=== PATIENT | male | born 1945 | race African-American/Black ===

== ENCOUNTER 2021-01-11 11:02 | Inpatient (IN) | payer BC, OTHER ==
[2021-01-11] MEDS ORDERED: MAG HYDROX/AL HYDROX/SIMETH 30 ML UNIT-DOSE CUP PO ONE (11:44)
[2021-01-11] MEDS ORDERED: FAMOTIDINE 10 MG TABLET PO ONE (11:44)
[2021-01-11] MEDS ORDERED: SUCRALFATE 1 GM TABLET (FP) PO ONE (11:44)
[2021-01-11] MEDS ORDERED: SUCRALFATE 1 GM TABLET (FP) ONE (12:07)
[2021-01-11] MEDS ORDERED: FAMOTIDINE 10 MG TABLET ONE (12:07)
[2021-01-11] MEDS ORDERED: MAG HYDROX/AL HYDROX/SIMETH 30 ML UNIT-DOSE CUP ONE (12:08)
[2021-01-11 12:30] LABS: VENOUS BASE EXCESS 2.2 mmol/L (-2-2); VENOUS PCO2 50.9 mmHg (38-52); VENOUS PH 7.367 (7.310-7.410)
[2021-01-11 12:31] LABS: BASO % 0.1 % (0-2.0); HEMATOCRIT 43.4 % (35.4-49); HEMOGLOBIN 14.5 GM/dL (11.7-16.9); LYMPH % 4.4 % (8-40); MCH 29.3 pg (25.7-33.7); MCHC 33.4 g/dl (32.0-35.9); MEAN CELL VOLUME 87.7 fl (80-96); MEAN PLT VOLUME 10.6 fl (7.5-11.1); MONO % 12.6 % (3.8-10.2); NEUT % 82.9 % (42.8-82.8); PLATELET COUNT 147 10^3/uL (134-434); RBC 4.95 M/mm3 (4.00-5.60); RDW 14.8 % (11.9-15.9); WHITE BLOOD COUNT 11.7 K/mm3 (4.0-10.0)
[2021-01-11 12:57] LABS: CALCIUM 8.4 mg/dL (8.5-10.1)
[2021-01-11 12:58] LABS: ALBUMIN 2.7 g/dl (3.4-5.0); BLOOD UREA NITROGEN 16.7 mg/dL (7-18); MAGNESIUM 1.7 mg/dL (1.8-2.4)
[2021-01-11 13:01] LABS: BILIRUBIN,TOTAL 1.2 mg/dL (0.2-1); CREATININE 1.3 mg/dL (0.55-1.3)
[2021-01-11 13:03] LABS: TOT PROT 6.7 g/dl (6.4-8.2)
[2021-01-11 13:06] LABS: LACTIC ACID 2.5 mmol/L (0.4-2.0)
[2021-01-11] MEDS ORDERED: LACTATED RINGERS SOLUTION 1000 ML INFUS.BAG IV ONE ×2 (13:10→15:45)
[2021-01-11] MEDS ORDERED: ASPIRIN 81 MG CHEWABLE TABLETS PO ONE (13:11)
[2021-01-11] MEDS ORDERED: ASPIRIN COATED 81 MG TABLET.EC ONE (13:21)
[2021-01-11] MEDS ORDERED: ACETAMINOPHEN 325 MG TABLET (FP) PO PRN (15:59)
[2021-01-11 17:00] LABS: LACTIC ACID 2.6 mmol/L (0.4-2.0)
[2021-01-11 17:46] VITALS: BMI 26.2
[2021-01-11] MEDS: ATORVASTATIN CA 40 MG TABLET (FP) PO SCH (22:24)
[2021-01-12] MEDS ORDERED: METOPROLOL TARTRATE 5 MG/5 ML VIAL IVPUSH ONE (02:00)
[2021-01-12] MEDS ORDERED: MAGNESIUM SULF 50% (8.12 MEQ/2 ML-1 GM VIAL) IVPB ONE ×2 (02:00→09:54)
[2021-01-12] MEDS ORDERED: MEROPENEM 1 GM in DEXTROSE 5%-WATER 100 ML IVPB ONE (02:18)
[2021-01-12] MEDS: SODIUM CHLORIDE 1,000 ML IV SCH ×2 (02:48→18:15)
[2021-01-12] MEDS ORDERED: METOPROLOL TARTRATE 25 MG TABLET (FP) PO ONE (03:11)
[2021-01-12] MEDS ORDERED: LORazepam 0.5 MG TABLET PO ONE (03:12)
[2021-01-12] MEDS ORDERED: MEROPENEM 1 GM VIAL (RESTRICTED TO ID) IVPB ONE (03:52)
[2021-01-12] MEDS ORDERED: DEXTROSE 5%-WATER 100 ML IVPB ONE ×2 (03:52→20:59)
[2021-01-12 07:25] LABS: BASO % 0.1 % (0-2.0); HEMATOCRIT 38.1 % (35.4-49); HEMOGLOBIN 12.7 GM/dL (11.7-16.9); LYMPH % 2.1 % (8-40); MCH 29.1 pg (25.7-33.7); MCHC 33.5 g/dl (32.0-35.9); MEAN CELL VOLUME 87.1 fl (80-96); MEAN PLT VOLUME 10.1 fl (7.5-11.1); MONO % 6.6 % (3.8-10.2); NEUT % 91.2 % (42.8-82.8); PLATELET COUNT 154 10^3/uL (134-434); RBC 4.37 M/mm3 (4.00-5.60); RDW 14.7 % (11.9-15.9); WHITE BLOOD COUNT 15.6 K/mm3 (4.0-10.0)
[2021-01-12 07:48] LABS: CALCIUM 8.1 mg/dL (8.5-10.1)
[2021-01-12 07:50] LABS: ALBUMIN 2.4 g/dl (3.4-5.0)
[2021-01-12 07:53] LABS: CREATININE 1.4 mg/dL (0.55-1.3)
[2021-01-12 07:54] LABS: TOT PROT 6.1 g/dl (6.4-8.2)
[2021-01-12 08:50] LABS: LACTIC ACID 4.7 mmol/L (0.4-2.0)
[2021-01-12] MEDS: ASPIRIN COATED 81 MG TABLET.EC PO SCH (09:26)
[2021-01-12 09:48] LABS: ANISOCYTOSIS 0; HELMET CELLS 0; HOWELL-JOLLY BODIES 0; MACROCYTOSIS 0; OVALOCYTE 0; PLATELET ESTIMATE NORMAL; ROULEAU 0; SICKELED CELLS 0; TARGET CELLS 0; TEAR DROP CELLS 0; TOXIC GRANULATION 0
[2021-01-12] MEDS ORDERED: ENOXAPARIN NA (PORCINE) 40 MG/0.4 ML DISP.SYRIN SQ SCH (10:00)
[2021-01-12 11:13] LABS: LACTIC ACID 5.5 mmol/L (0.4-2.0)
[2021-01-12] MEDS: LORazepam 0.5 MG TABLET PO PRN ×2 (14:06→21:40)
[2021-01-12] MEDS: METOPROLOL TARTRATE 25 MG TABLET (FP) PO SCH ×2 (14:56→21:40)
[2021-01-12] MEDS: INSULIN SLIDING SCALE (NOVOLOG) 1 VIAL SQ SCH ×2 (16:38→21:41)
[2021-01-12 18:42] LABS: BASO % 0.2 % (0-2.0); HEMATOCRIT 37.5 % (35.4-49); HEMOGLOBIN 12.5 GM/dL (11.7-16.9); LYMPH % 2.8 % (8-40); MCH 28.9 pg (25.7-33.7); MCHC 33.3 g/dl (32.0-35.9); MEAN CELL VOLUME 86.7 fl (80-96); MEAN PLT VOLUME 10.2 fl (7.5-11.1); MONO % 5.9 % (3.8-10.2); NEUT % 91.1 % (42.8-82.8); PLATELET COUNT 163 10^3/uL (134-434); RBC 4.32 M/mm3 (4.00-5.60); RDW 14.8 % (11.9-15.9); WHITE BLOOD COUNT 15.2 K/mm3 (4.0-10.0)
[2021-01-12 18:47] LABS: INR 1.21 (0.83-1.09); PROTHROMBIN TIME (PATIENT) 14.6 SEC (9.7-13.0)
[2021-01-12 18:50] LABS: ACTIVATED PTT 31.5 SECONDS (25.2-36.5)
[2021-01-12] MEDS: HEPARIN INFUSION - 25,000 UNITS/500 ML INFUS.BAG IVPB SCH (18:52)
[2021-01-12] MEDS ORDERED: DOXYCYCLINE HYCLATE 100 MG VIAL ONE (20:59)
[2021-01-12] MEDS: ATORVASTATIN CA 40 MG TABLET (FP) PO SCH (21:40)
[2021-01-12] MEDS: DOXYCYCLINE INJECTION 100 MG in DEXTROSE 5%-WATER 100 ML IVPB SCH (21:41)
[2021-01-12] MEDS ORDERED: APIXABAN 5 MG TABLET PO SCH (22:00)
[2021-01-12 23:40] LABS: EPI CELLS >36 /uL (0-25.1); HYALINE CASTS 18 /uL (0-3.1); PH,URINE 5.5 (5.0-8.0); URINE APPEARANCE CLOUDY; URINE BACTERIA 19 /uL (0-1359); URINE BILIRUBIN 1+ (NEGATIVE); URINE COLOR DK YELLOW; URINE GLUCOSE (UA) NEGATIVE (NEGATIVE); URINE KETONE TRACE (NEGATIVE); URINE LEUK ESTERASE 1+ (NEGATIVE); URINE NITRITE NEGATIVE (NEGATIVE); URINE PROTEIN 1+ (NEGATIVE); URINE RBC 19 /uL (0-23.9); URINE UROBILINOGEN 0.2 mg/dL (0.2-1.0); URINE WBC 400 /uL (0-25.8)
[2021-01-13] MEDS: HEPARIN NA (PORCINE) 5,000 UNITS/ML 1ML VIAL IVPUSH PRN ×3 (01:32→17:58)
[2021-01-13] MEDS: HEPARIN INFUSION - 25,000 UNITS/500 ML INFUS.BAG IVPB SCH ×3 (01:34→19:30)
[2021-01-13] MEDS: SODIUM CHLORIDE 1,000 ML IV SCH ×2 (02:30→18:45)
[2021-01-13] MEDS ORDERED: DIGOXIN 0.5 MG/2 ML AMPUL IVPUSH ONE ×2 (03:15→03:45)
[2021-01-13 04:21] LABS: BASO % 0.2 % (0-2.0); HEMATOCRIT 37.4 % (35.4-49); HEMOGLOBIN 12.6 GM/dL (11.7-16.9); LYMPH % 2.7 % (8-40); MCH 29.2 pg (25.7-33.7); MCHC 33.8 g/dl (32.0-35.9); MEAN CELL VOLUME 86.4 fl (80-96); MEAN PLT VOLUME 10.5 fl (7.5-11.1); MONO % 5.5 % (3.8-10.2); NEUT % 91.6 % (42.8-82.8); PLATELET COUNT 164 10^3/uL (134-434); RBC 4.33 M/mm3 (4.00-5.60); RDW 14.8 % (11.9-15.9); WHITE BLOOD COUNT 17.2 K/mm3 (4.0-10.0)
[2021-01-13 05:01] LABS: ALBUMIN 2.4 g/dl (3.4-5.0); BLOOD UREA NITROGEN 38.4 mg/dL (7-18); CALCIUM 7.9 mg/dL (8.5-10.1)
[2021-01-13 05:06] LABS: CREATININE 1.4 mg/dL (0.55-1.3)
[2021-01-13 05:07] LABS: BILIRUBIN,TOTAL 0.6 mg/dL (0.2-1); TOT PROT 6.1 g/dl (6.4-8.2)
[2021-01-13] MEDS ORDERED: METOPROLOL TARTRATE 5 MG/5 ML VIAL IVPUSH ONE (05:08)
[2021-01-13 05:30] LABS: LACTIC ACID 2.9 mmol/L (0.4-2.0)
[2021-01-13] MEDS: INSULIN SLIDING SCALE (NOVOLOG) 1 VIAL SQ SCH ×4 (06:09→21:42)
[2021-01-13 06:46] LABS: ANISOCYTOSIS 0; HELMET CELLS 0; HOWELL-JOLLY BODIES 0; MACROCYTOSIS 0; OVALOCYTE 0; PLATELET ESTIMATE NORMAL; ROULEAU 0; SICKELED CELLS 0; TARGET CELLS 0; TEAR DROP CELLS 0; TOXIC GRANULATION 0
[2021-01-13 08:30] LABS: BASO % 0.1 % (0-2.0); HEMATOCRIT 35.6 % (35.4-49); HEMOGLOBIN 11.9 GM/dL (11.7-16.9); LYMPH % 2.2 % (8-40); MCH 29.1 pg (25.7-33.7); MCHC 33.6 g/dl (32.0-35.9); MEAN CELL VOLUME 86.7 fl (80-96); MEAN PLT VOLUME 10.5 fl (7.5-11.1); MONO % 5.6 % (3.8-10.2); NEUT % 92.1 % (42.8-82.8); PLATELET COUNT 172 10^3/uL (134-434); RDW 14.7 % (11.9-15.9); WHITE BLOOD COUNT 16.3 K/mm3 (4.0-10.0)
[2021-01-13] MEDS ORDERED: MEROPENEM 1 GM VIAL (RESTRICTED TO ID) IVPB ONE ×3 (08:34→17:34)
[2021-01-13] MEDS ORDERED: DEXTROSE 5%-WATER 100 ML IVPB ONE ×5 (08:35→20:55)
[2021-01-13] MEDS: MEROPENEM 1 GM in DEXTROSE 5%-WATER 100 ML IVPB SCH ×3 (08:47→17:38)
[2021-01-13 08:49] LABS: CHLORIDE 100 mmol/L (98-107); SODIUM 135 mmol/L (136-145)
[2021-01-13 08:51] LABS: CALCIUM 8.1 mg/dL (8.5-10.1)
[2021-01-13 08:52] LABS: ANION GAP 9 MMOL/L (8-16); BLOOD UREA NITROGEN 42.3 mg/dL (7-18); CO2 26 mmol/L (21-32); GLUCOSE,RANDOM 242 mg/dL (74-106)
[2021-01-13 08:53] LABS: MAGNESIUM 2.2 mg/dL (1.8-2.4)
[2021-01-13 08:56] LABS: CREATININE 1.5 mg/dL (0.55-1.3); PHOSPHOROUS 3.4 mg/dL (2.5-4.9); SGPT/ALT 36 U/L (13-61)
[2021-01-13 08:58] LABS: ALBUMIN 2.2 g/dl (3.4-5.0); ALK PHOS 95 U/L (45-117); BILIRUBIN,TOTAL 0.7 mg/dL (0.2-1); TOT PROT 5.7 g/dl (6.4-8.2)
[2021-01-13 09:02] LABS: SGOT/AST 48 U/L (15-37)
[2021-01-13] MEDS ORDERED: DOXYCYCLINE HYCLATE 100 MG VIAL ONE ×2 (09:21→20:55)
[2021-01-13 09:28] LABS: ANISOCYTOSIS 0; MACROCYTOSIS 0; PLATELET ESTIMATE NORMAL
[2021-01-13] MEDS: ASPIRIN COATED 81 MG TABLET.EC PO SCH (09:40)
[2021-01-13] MEDS: DOXYCYCLINE INJECTION 100 MG in DEXTROSE 5%-WATER 100 ML IVPB SCH ×2 (09:40→21:10)
[2021-01-13] MEDS: METOPROLOL TARTRATE 25 MG TABLET (FP) PO SCH (09:40)
[2021-01-13] MEDS ORDERED: metoPROLOL SUCCINATE 25 MG TAB.SR.24H (FP) PO ONE (11:15)
[2021-01-13 17:17] LABS: EPI CELLS 10 /uL (0-25.1); HYALINE CASTS 4 /uL (0-3.1); PH,URINE 5.5 (5.0-8.0); URINE APPEARANCE CLOUDY; URINE BACTERIA 128 /uL (0-1359); URINE BILIRUBIN NEGATIVE (NEGATIVE); URINE COLOR YELLOW; URINE GLUCOSE (UA) NEGATIVE (NEGATIVE); URINE KETONE 1+ (NEGATIVE); URINE LEUK ESTERASE TRACE (NEGATIVE); URINE NITRITE NEGATIVE (NEGATIVE); URINE PROTEIN TRACE (NEGATIVE); URINE RBC 36 /uL (0-23.9); URINE UROBILINOGEN 0.2 mg/dL (0.2-1.0); URINE WBC 143 /uL (0-25.8)
[2021-01-13] MEDS: LORazepam 0.5 MG TABLET PO PRN (18:03)
[2021-01-13] MEDS: ATORVASTATIN CA 40 MG TABLET (FP) PO SCH (21:10)
[2021-01-14] MEDS: HEPARIN INFUSION - 25,000 UNITS/500 ML INFUS.BAG IVPB SCH ×3 (00:11→18:51)
[2021-01-14] MEDS ORDERED: MEROPENEM 1 GM VIAL (RESTRICTED TO ID) IVPB ONE ×3 (01:05→17:04)
[2021-01-14] MEDS ORDERED: DEXTROSE 5%-WATER 100 ML IVPB ONE ×5 (01:06→22:00)
[2021-01-14] MEDS: MEROPENEM 1 GM in DEXTROSE 5%-WATER 100 ML IVPB SCH ×3 (01:17→17:24)
[2021-01-14] MEDS: LORazepam 0.5 MG TABLET PO PRN (06:08)
[2021-01-14] MEDS: INSULIN SLIDING SCALE (NOVOLOG) 1 VIAL SQ SCH ×4 (06:09→22:08)
[2021-01-14 07:43] LABS: HEMATOCRIT 35.4 % (35.4-49); MCH 29.1 pg (25.7-33.7); MEAN CELL VOLUME 85.7 fl (80-96); MEAN PLT VOLUME 10.2 fl (7.5-11.1); PLATELET COUNT 170 10^3/uL (134-434); RBC 4.13 M/mm3 (4.00-5.60); RDW 14.8 % (11.9-15.9); WHITE BLOOD COUNT 15.3 K/mm3 (4.0-10.0)
[2021-01-14 08:33] LABS: CALCIUM 8.3 mg/dL (8.5-10.1)
[2021-01-14 08:35] LABS: ALBUMIN 2.2 g/dl (3.4-5.0); BLOOD UREA NITROGEN 42.4 mg/dL (7-18); MAGNESIUM 2.5 mg/dL (1.8-2.4)
[2021-01-14 08:37] LABS: CREATININE 1.3 mg/dL (0.55-1.3); PHOSPHOROUS 1.9 mg/dL (2.5-4.9)
[2021-01-14 08:38] LABS: TOT PROT 5.7 g/dl (6.4-8.2)
[2021-01-14 08:39] LABS: BILIRUBIN,TOTAL 0.6 mg/dL (0.2-1)
[2021-01-14] MEDS ORDERED: DOXYCYCLINE HYCLATE 100 MG VIAL ONE ×3 (09:08→22:00)
[2021-01-14] MEDS: DOXYCYCLINE INJECTION 100 MG in DEXTROSE 5%-WATER 100 ML IVPB SCH ×2 (09:31→22:07)
[2021-01-14] MEDS: ASPIRIN COATED 81 MG TABLET.EC PO SCH (09:31)
[2021-01-14] MEDS: guaiFENesin/D-M SUGAR-FREE/ACLHOL-FREE 5 ML UNIT DOSE PO PRN (11:45)
[2021-01-14] MEDS ORDERED: INSULIN (NOVOLOG) ASPART 100 UNITS/ML 10ML VIAL ONE ×2 (11:58→18:31)
[2021-01-14] MEDS ORDERED: PT OWN MED DRAWER 7, Y5N ONE (12:19)
[2021-01-14] MEDS ORDERED: metoPROLOL SUCCINATE 25 MG TAB.SR.24H (FP) PO ONE (12:47)
[2021-01-14] MEDS: NAPH,MB-DB/K PH,MBDB POWDER PACKET PO SCH ×2 (14:38→22:06)
[2021-01-14] MEDS: SODIUM CHLORIDE 1,000 ML IV SCH (19:00)
[2021-01-14 19:47] LABS: CALCIUM 8.2 mg/dL (8.5-10.1); CREATININE 1.1 mg/dL (0.55-1.3)
[2021-01-14] MEDS: ATORVASTATIN CA 40 MG TABLET (FP) PO SCH (22:06)
[2021-01-14] MEDS: MELATONIN 5 MG TABLETS PO PRN (23:25)
[2021-01-15] MEDS ORDERED: MEROPENEM 1 GM VIAL (RESTRICTED TO ID) IVPB ONE ×3 (01:25→17:20)
[2021-01-15] MEDS ORDERED: DEXTROSE 5%-WATER 100 ML IVPB ONE ×4 (01:25→22:12)
[2021-01-15] MEDS: LORazepam 0.5 MG TABLET PO PRN (01:28)
[2021-01-15] MEDS: MEROPENEM 1 GM in DEXTROSE 5%-WATER 100 ML IVPB SCH ×3 (01:43→17:42)
[2021-01-15] MEDS: INSULIN SLIDING SCALE (NOVOLOG) 1 VIAL SQ SCH ×4 (06:01→22:18)
[2021-01-15 07:59] LABS: HEMATOCRIT 35.2 % (35.4-49); MCH 29.2 pg (25.7-33.7); MCHC 34.1 g/dl (32.0-35.9); MEAN CELL VOLUME 85.6 fl (80-96); MEAN PLT VOLUME 10.1 fl (7.5-11.1); PLATELET COUNT 190 10^3/uL (134-434); RDW 14.3 % (11.9-15.9); WHITE BLOOD COUNT 10.9 K/mm3 (4.0-10.0)
[2021-01-15 08:31] LABS: MAGNESIUM 2.3 mg/dL (1.8-2.4)
[2021-01-15 08:34] LABS: PHOSPHOROUS 2.3 mg/dL (2.5-4.9)
[2021-01-15] MEDS ORDERED: DOXYCYCLINE HYCLATE 100 MG VIAL ONE ×2 (09:13→22:11)
[2021-01-15] MEDS: ASPIRIN COATED 81 MG TABLET.EC PO SCH (09:38)
[2021-01-15] MEDS: DOXYCYCLINE INJECTION 100 MG in DEXTROSE 5%-WATER 100 ML IVPB SCH ×2 (09:38→22:18)
[2021-01-15 11:22] LABS: ANION GAP 9 MMOL/L (8-16); BLOOD UREA NITROGEN 31.3 mg/dL (7-18); CALCIUM 8.6 mg/dL (8.5-10.1); CHLORIDE 101 mmol/L (98-107); CO2 26 mmol/L (21-32); GLUCOSE,RANDOM 180 mg/dL (74-106); SODIUM 136 mmol/L (136-145)
[2021-01-15] MEDS ORDERED: metoPROLOL SUCCINATE 25 MG TAB.SR.24H (FP) PO ONE ×2 (11:38→13:45)
[2021-01-15] MEDS ORDERED: NAPH,MB-DB/K PH,MBDB POWDER PACKET PO ONE (11:43)
[2021-01-15] MEDS ORDERED: INSULIN (NOVOLOG) ASPART 100 UNITS/ML 10ML VIAL ONE ×2 (12:15→18:14)
[2021-01-15] MEDS: HEPARIN INFUSION - 25,000 UNITS/500 ML INFUS.BAG IVPB SCH ×2 (15:48→17:43)
[2021-01-15] MEDS ORDERED: LORazepam 2 MG TABLET PO PRN (21:14)
[2021-01-15] MEDS ORDERED: LORazepam 0.5 MG TABLET PO PRN (21:19)
[2021-01-15] MEDS: ATORVASTATIN CA 40 MG TABLET (FP) PO SCH (22:18)
[2021-01-15] MEDS: MELATONIN 5 MG TABLETS PO PRN (22:18)
[2021-01-16] MEDS ORDERED: DEXTROSE 5%-WATER 100 ML IVPB ONE ×5 (01:36→22:36)
[2021-01-16] MEDS ORDERED: MEROPENEM 1 GM VIAL (RESTRICTED TO ID) IVPB ONE ×3 (01:36→17:40)
[2021-01-16] MEDS: MEROPENEM 1 GM in DEXTROSE 5%-WATER 100 ML IVPB SCH ×3 (01:59→17:29)
[2021-01-16] MEDS: INSULIN SLIDING SCALE (NOVOLOG) 1 VIAL SQ SCH ×4 (06:09→22:52)
[2021-01-16 07:46] LABS: CHLORIDE 102 mmol/L (98-107); SODIUM 139 mmol/L (136-145)
[2021-01-16 07:54] LABS: ANION GAP 8 MMOL/L (8-16); BLOOD UREA NITROGEN 22.2 mg/dL (7-18); CO2 29 mmol/L (21-32); GLUCOSE,RANDOM 135 mg/dL (74-106); MAGNESIUM 2.1 mg/dL (1.8-2.4)
[2021-01-16 07:57] LABS: PHOSPHOROUS 2.9 mg/dL (2.5-4.9)
[2021-01-16] MEDS ORDERED: DOXYCYCLINE HYCLATE 100 MG VIAL ONE ×2 (09:19→22:35)
[2021-01-16] MEDS: TAMSULOSIN HCL 0.4 MG CAP PO SCH (10:16)
[2021-01-16] MEDS: DOXYCYCLINE INJECTION 100 MG in DEXTROSE 5%-WATER 100 ML IVPB SCH ×2 (10:17→22:52)
[2021-01-16] MEDS: ASPIRIN COATED 81 MG TABLET.EC PO SCH (10:17)
[2021-01-16] MEDS: LISINOPRIL 5 MG TABLET PO SCH (10:17)
[2021-01-16] MEDS: HEPARIN INFUSION - 25,000 UNITS/500 ML INFUS.BAG IVPB SCH (17:31)
[2021-01-16] MEDS: MELATONIN 5 MG TABLETS PO PRN (22:52)
[2021-01-16] MEDS: ATORVASTATIN CA 40 MG TABLET (FP) PO SCH (22:52)
[2021-01-17] MEDS ORDERED: DEXTROSE 5%-WATER 100 ML IVPB ONE ×3 (01:24→09:48)
[2021-01-17] MEDS ORDERED: MEROPENEM 1 GM VIAL (RESTRICTED TO ID) IVPB ONE ×2 (01:24→09:48)
[2021-01-17] MEDS: MEROPENEM 1 GM in DEXTROSE 5%-WATER 100 ML IVPB SCH ×2 (01:31→09:50)
[2021-01-17] MEDS: INSULIN SLIDING SCALE (NOVOLOG) 1 VIAL SQ SCH ×4 (06:13→21:00)
[2021-01-17] MEDS: HEPARIN INFUSION - 25,000 UNITS/500 ML INFUS.BAG IVPB SCH ×2 (06:47→18:30)
[2021-01-17 07:38] LABS: HEMATOCRIT 35.4 % (35.4-49); HEMOGLOBIN 11.8 GM/dL (11.7-16.9); MCH 31.3 pg (25.7-33.7); MCHC 33.3 g/dl (32.0-35.9); MEAN CELL VOLUME 94.1 fl (80-96); MEAN PLT VOLUME 9.6 fl (7.5-11.1); PLATELET COUNT 116 10^3/uL (134-434); RBC 3.76 M/mm3 (4.00-5.60); WHITE BLOOD COUNT 7.9 K/mm3 (4.0-10.0)
[2021-01-17 07:58] LABS: ALBUMIN 2.2 g/dl (3.4-5.0); BLOOD UREA NITROGEN 21.2 mg/dL (7-18); MAGNESIUM 2.2 mg/dL (1.8-2.4)
[2021-01-17 08:01] LABS: CREATININE 0.3 mg/dL (0.55-1.3)
[2021-01-17 08:02] LABS: PHOSPHOROUS 2.8 mg/dL (2.5-4.9)
[2021-01-17 08:03] LABS: BILIRUBIN,TOTAL 0.5 mg/dL (0.2-1)
[2021-01-17 08:04] LABS: TOT PROT 4.6 g/dl (6.4-8.2)
[2021-01-17] MEDS ORDERED: DOXYCYCLINE HYCLATE 100 MG VIAL ONE (09:47)
[2021-01-17] MEDS: TAMSULOSIN HCL 0.4 MG CAP PO SCH (09:49)
[2021-01-17] MEDS: LISINOPRIL 5 MG TABLET PO SCH (09:49)
[2021-01-17] MEDS: DOXYCYCLINE INJECTION 100 MG in DEXTROSE 5%-WATER 100 ML IVPB SCH (09:50)
[2021-01-17] MEDS: ASPIRIN COATED 81 MG TABLET.EC PO SCH (09:50)
[2021-01-17] MEDS: HEPARIN NA (PORCINE) 5,000 UNITS/ML 1ML VIAL IVPUSH PRN (09:59)
[2021-01-17] MEDS ORDERED: INSULIN (NOVOLOG) ASPART 100 UNITS/ML 10ML VIAL ONE (17:42)
[2021-01-17] MEDS: ATORVASTATIN CA 40 MG TABLET (FP) PO SCH (21:00)
[2021-01-17] MEDS: GABAPENTIN 100 MG CAPSULE PO SCH (21:00)
[2021-01-17] MEDS: MELATONIN 5 MG TABLETS PO PRN (22:29)
[2021-01-18] MEDS: HEPARIN INFUSION - 25,000 UNITS/500 ML INFUS.BAG IVPB SCH (04:56)
[2021-01-18] MEDS: INSULIN SLIDING SCALE (NOVOLOG) 1 VIAL SQ SCH ×5 (06:15→21:12)
[2021-01-18 08:20] LABS: HEMATOCRIT 32.4 % (35.4-49); MCH 29.3 pg (25.7-33.7); MCHC 34.1 g/dl (32.0-35.9); MEAN PLT VOLUME 9.3 fl (7.5-11.1); PLATELET COUNT 221 10^3/uL (134-434); RBC 3.76 M/mm3 (4.00-5.60); RDW 14.9 % (11.9-15.9); WHITE BLOOD COUNT 8.8 K/mm3 (4.0-10.0)
[2021-01-18 08:40] LABS: MAGNESIUM 1.9 mg/dL (1.8-2.4)
[2021-01-18 08:44] LABS: BILIRUBIN,TOTAL 0.6 mg/dL (0.2-1)
[2021-01-18] MEDS ORDERED: DEXTROSE 5%-WATER 100 ML IVPB ONE (09:26)
[2021-01-18] MEDS ORDERED: MEROPENEM 500 MG VIAL (RESTRICTED TO ID) IVPB ONE (09:26)
[2021-01-18] MEDS: ASPIRIN COATED 81 MG TABLET.EC PO SCH (09:28)
[2021-01-18] MEDS: LISINOPRIL 5 MG TABLET PO SCH (09:28)
[2021-01-18] MEDS: TAMSULOSIN HCL 0.4 MG CAP PO SCH (09:28)
[2021-01-18] MEDS: APIXABAN 5 MG TABLET PO SCH ×2 (09:28→21:11)
[2021-01-18 09:46] LABS: ANISOCYTOSIS 1+; MACROCYTOSIS 0; PLATELET ESTIMATE NORMAL; TARGET CELLS 1+
[2021-01-18] MEDS ORDERED: MEROPENEM 500 MG in DEXTROSE 5%-WATER 100 ML IVPB ONE (10:00)
[2021-01-18] MEDS: guaiFENesin/D-M SUGAR-FREE/ACLHOL-FREE 5 ML UNIT DOSE PO PRN (11:01)
[2021-01-18] MEDS ORDERED: PT OWN MED DRAWER 7, Y5N ONE (11:31)
[2021-01-18] MEDS ORDERED: MAG HYDROX/AL HYDROX/SIMETH -MYLANTA- ORAL SUSPENSION PO SCH (18:00)
[2021-01-18] MEDS: ATORVASTATIN CA 40 MG TABLET (FP) PO SCH (21:11)
[2021-01-18] MEDS: GABAPENTIN 100 MG CAPSULE PO SCH (21:11)
[2021-01-18] MEDS: MAG HYDROX/AL HYDROX/SIMETH 30 ML UNIT-DOSE CUP PO SCH (23:42)
[2021-01-19] MEDS: MAG HYDROX/AL HYDROX/SIMETH 30 ML UNIT-DOSE CUP PO SCH ×4 (05:41→23:31)
[2021-01-19] MEDS: INSULIN SLIDING SCALE (NOVOLOG) 1 VIAL SQ SCH ×4 (06:08→21:28)
[2021-01-19 07:14] LABS: BASO % 0.5 % (0-2.0); HEMATOCRIT 33.3 % (35.4-49); HEMOGLOBIN 11.2 GM/dL (11.7-16.9); LYMPH % 11.2 % (8-40); MCH 29.2 pg (25.7-33.7); MCHC 33.7 g/dl (32.0-35.9); MEAN CELL VOLUME 86.6 fl (80-96); MEAN PLT VOLUME 9.5 fl (7.5-11.1); MONO % 10.2 % (3.8-10.2); NEUT % 76.1 % (42.8-82.8); PLATELET COUNT 235 10^3/uL (134-434); RBC 3.85 M/mm3 (4.00-5.60); RDW 14.8 % (11.9-15.9); WHITE BLOOD COUNT 8.1 K/mm3 (4.0-10.0)
[2021-01-19 07:20] LABS: CALCIUM 7.8 mg/dL (8.5-10.1)
[2021-01-19 07:21] LABS: MAGNESIUM 1.7 mg/dL (1.8-2.4)
[2021-01-19 07:24] LABS: CREATININE 0.9 mg/dL (0.55-1.3); PHOSPHOROUS 3.1 mg/dL (2.5-4.9)
[2021-01-19 07:26] LABS: BILIRUBIN,TOTAL 0.6 mg/dL (0.2-1); TOT PROT 5.2 g/dl (6.4-8.2)
[2021-01-19] MEDS: LISINOPRIL 5 MG TABLET PO SCH (09:26)
[2021-01-19] MEDS: TAMSULOSIN HCL 0.4 MG CAP PO SCH (09:26)
[2021-01-19] MEDS: APIXABAN 5 MG TABLET PO SCH ×2 (09:26→21:28)
[2021-01-19] MEDS: ASPIRIN COATED 81 MG TABLET.EC PO SCH (09:26)
[2021-01-19] MEDS ORDERED: MAGNESIUM 1GM/D5W 100ML - 100 ML IVPB IVPB ONE (10:50)
[2021-01-19] MEDS: GABAPENTIN 100 MG CAPSULE PO SCH (21:28)
[2021-01-19] MEDS: ATORVASTATIN CA 40 MG TABLET (FP) PO SCH (21:28)
[2021-01-20] MEDS: MAG HYDROX/AL HYDROX/SIMETH 30 ML UNIT-DOSE CUP PO SCH ×3 (05:49→17:37)
[2021-01-20] MEDS: INSULIN SLIDING SCALE (NOVOLOG) 1 VIAL SQ SCH ×4 (06:01→21:32)
[2021-01-20 07:33] LABS: HEMATOCRIT 32.1 % (35.4-49); HEMOGLOBIN 10.9 GM/dL (11.7-16.9); MCH 29.2 pg (25.7-33.7); MEAN CELL VOLUME 85.9 fl (80-96); MEAN PLT VOLUME 9.4 fl (7.5-11.1); PLATELET COUNT 218 10^3/uL (134-434); RBC 3.74 M/mm3 (4.00-5.60); RDW 14.6 % (11.9-15.9); WHITE BLOOD COUNT 7.5 K/mm3 (4.0-10.0)
[2021-01-20 08:01] LABS: CALCIUM 7.8 mg/dL (8.5-10.1)
[2021-01-20 08:02] LABS: ALBUMIN 2.1 g/dl (3.4-5.0)
[2021-01-20 08:04] LABS: CREATININE 0.9 mg/dL (0.55-1.3)
[2021-01-20 08:05] LABS: PHOSPHOROUS 3.2 mg/dL (2.5-4.9)
[2021-01-20 08:06] LABS: BILIRUBIN,TOTAL 0.5 mg/dL (0.2-1)
[2021-01-20] MEDS: TAMSULOSIN HCL 0.4 MG CAP PO SCH (08:57)
[2021-01-20] MEDS: LISINOPRIL 5 MG TABLET PO SCH (09:05)
[2021-01-20] MEDS: APIXABAN 5 MG TABLET PO SCH ×2 (09:05→21:31)
[2021-01-20] MEDS: ASPIRIN COATED 81 MG TABLET.EC PO SCH (09:05)
[2021-01-20 09:15] LABS: ANISOCYTOSIS 0; HELMET CELLS 0; HOWELL-JOLLY BODIES 0; MACROCYTOSIS 0; OVALOCYTE 0; PLATELET ESTIMATE NORMAL; ROULEAU 0; SICKELED CELLS 0; TARGET CELLS 0; TEAR DROP CELLS 0; TOXIC GRANULATION 0
[2021-01-20] MEDS ORDERED: INSULIN (NOVOLOG) ASPART 100 UNITS/ML 10ML VIAL ONE ×2 (11:39→16:35)
[2021-01-20 19:00] LABS: CREATININE 1.1 mg/dL (0.55-1.3)
[2021-01-20] MEDS: ATORVASTATIN CA 40 MG TABLET (FP) PO SCH (21:30)
[2021-01-20] MEDS: GABAPENTIN 100 MG CAPSULE PO SCH (21:31)
[2021-01-20] MEDS ORDERED: PT OWN MED DRAWER 7, Y5N ONE (21:36)
[2021-01-20] MEDS: guaiFENesin/D-M SUGAR-FREE/ACLHOL-FREE 5 ML UNIT DOSE PO PRN (21:38)
[2021-01-21] MEDS: INSULIN SLIDING SCALE (NOVOLOG) 1 VIAL SQ SCH ×4 (06:40→23:02)
[2021-01-21] MEDS: MAG HYDROX/AL HYDROX/SIMETH 30 ML UNIT-DOSE CUP PO SCH ×4 (06:40→17:23)
[2021-01-21 07:33] LABS: HEMATOCRIT 32.9 % (35.4-49); HEMOGLOBIN 11.1 GM/dL (11.7-16.9); MCH 29.2 pg (25.7-33.7); MCHC 33.7 g/dl (32.0-35.9); MEAN CELL VOLUME 86.5 fl (80-96); MEAN PLT VOLUME 9.6 fl (7.5-11.1); PLATELET COUNT 209 10^3/uL (134-434); RDW 14.8 % (11.9-15.9); WHITE BLOOD COUNT 7.1 K/mm3 (4.0-10.0)
[2021-01-21] MEDS: LISINOPRIL 5 MG TABLET PO SCH (09:03)
[2021-01-21] MEDS: APIXABAN 5 MG TABLET PO SCH ×2 (09:03→22:01)
[2021-01-21] MEDS: TAMSULOSIN HCL 0.4 MG CAP PO SCH (09:03)
[2021-01-21] MEDS: ASPIRIN COATED 81 MG TABLET.EC PO SCH (09:03)
[2021-01-21] MEDS: ATORVASTATIN CA 40 MG TABLET (FP) PO SCH (22:01)
[2021-01-21] MEDS: GABAPENTIN 100 MG CAPSULE PO SCH (22:01)
[2021-01-22] MEDS: MAG HYDROX/AL HYDROX/SIMETH 30 ML UNIT-DOSE CUP PO SCH ×3 (03:20→13:26)
[2021-01-22 05:26] VITALS: TEMP 97.9
[2021-01-22] MEDS ORDERED: PT OWN MED DRAWER 7, Y5N ONE (06:48)
[2021-01-22] MEDS: INSULIN SLIDING SCALE (NOVOLOG) 1 VIAL SQ SCH ×2 (06:48→11:05)
[2021-01-22] MEDS: guaiFENesin/D-M SUGAR-FREE/ACLHOL-FREE 5 ML UNIT DOSE PO PRN (06:50)
[2021-01-22] MEDS ORDERED: ALBUTEROL SO4 HFA INHALER IH PRN (08:21)
[2021-01-22] MEDS: TAMSULOSIN HCL 0.4 MG CAP PO SCH (09:11)
[2021-01-22] MEDS: LISINOPRIL 5 MG TABLET PO SCH (09:11)
[2021-01-22] MEDS: APIXABAN 5 MG TABLET PO SCH (09:11)
[2021-01-22] MEDS: ASPIRIN COATED 81 MG TABLET.EC PO SCH (09:12)
[2021-01-22 14:07] VITALS: BP 160/92; PULSE 56
== END 2021-01-22 18:00 | disposition short-term general hospital (02) | DRG 871 ==
LOC: JER 11:02 → JERBED 13:26 → OBSVTOIN 15:59 → J4W 17:08
PROVIDERS: ADMIT Internal Medicine
DX: A41.89 Other specified sepsis (principal); J96.01 Acute respiratory failure with hypoxia; J69.0 Pneumonitis due to inhalation of food and vomit; I21.A1 Myocardial infarction type 2; I47.1 Supraventricular tachycardia; N17.9 Acute kidney failure, unspecified; E78.5 Hyperlipidemia, unspecified; I25.10 Atherosclerotic heart disease of native coronary artery without angina pectoris; D72.829 Elevated white blood cell count, unspecified; I48.0 Paroxysmal atrial fibrillation; F10.20 Alcohol dependence, uncomplicated; R77.8 Other specified abnormalities of plasma proteins; E66.9 Obesity, unspecified; Z68.26 Body mass index [BMI] 26.0-26.9, adult; N40.0 Benign prostatic hyperplasia without lower urinary tract symptoms; R55 Syncope and collapse; I12.9 Hypertensive chronic kidney disease with stage 1 through stage 4 chronic kidney disease, or unspecified chronic kidney disease; E11.22 Type 2 diabetes mellitus with diabetic chronic kidney disease; N18.30 Chronic kidney disease, stage 3 unspecified; Z88.0 Allergy status to penicillin; Z95.5 Presence of coronary angioplasty implant and graft; Z86.73 Personal history of transient ischemic attack (TIA), and cerebral infarction without residual deficits
CPT/HCPCS: 36415; 71045-TC-FY; 76775-TC; 76856-TC; 80048; 80053; 81003; 82550; 82553; 82803; 82962; 83605; 83735; 84100; 84443; 84484; 85025; 85027; 85610; 85730; 86618; 87040; 87086; 87804; 87899; 93005; 93010; 93306-TC; 93971; 94761; 99285-25; C9803; G0378; J1644; U0003; U0005

== ENCOUNTER 2021-06-14 15:36 | Emergency (ER) | payer OTHER ==
[2021-06-14 16:05] VITALS: BMI 31.6
[2021-06-14] MEDS ORDERED: diazePAM 5 MG TABLET PO ONE (17:10)
[2021-06-14] MEDS ORDERED: KETOROLAC TROMETHAMINE 15 MG/ML VIAL IM ONE (17:10)
[2021-06-14] MEDS ORDERED: LIDOCAINE 5% TOPICAL PATCH TP ONE (17:16)
[2021-06-14] MEDS ORDERED: diazePAM 5 MG TABLET ONE (17:28)
[2021-06-14] MEDS ORDERED: KETOROLAC TROMETHAMINE 15 MG/ML VIAL ONE (17:28)
[2021-06-14] MEDS ORDERED: LIDOCAINE 5% TOPICAL PATCH ONE (17:32)
[2021-06-14 18:06] VITALS: BP 175/109; PULSE 84; TEMP 98
[2021-06-14] MEDS ORDERED: LIDOCAINE PATCH REMOVAL MC SCH (22:00)
== END 2021-06-14 18:59 | disposition home or self-care (01) ==
LOC: JERFT 15:36
PROC: 3E0233Z Introduction of Anti-inflammatory into Muscle, Percutaneous Approach (ICD-10-PCS; principal; 2021-06-14)
DX: M54.50 Low back pain, unspecified (principal)
CPT/HCPCS: 72100-TC-FY; 72170-TC-FY; 99284-25

== ENCOUNTER 2021-12-19 17:23 | Inpatient (IN) | payer OTHER ==
[2021-12-19 21:00] LABS: BASO % 1.4 % (0-2.0); EOS % 1.7 % (0-4.5); HEMATOCRIT 41.9 % (35.4-49); HEMOGLOBIN 13.6 GM/dL (11.7-16.9); LYMPH % 22.2 % (8-40); MCH 27.7 pg (25.7-33.7); MCHC 32.6 g/dl (32.0-35.9); MEAN PLT VOLUME 10.2 fl (7.5-11.1); NEUT % 64.7 % (42.8-82.8); PLATELET COUNT 127 10^3/uL (134-434); RBC 4.93 M/mm3 (4.00-5.60); RDW 16.3 % (11.9-15.9); WHITE BLOOD COUNT 5.5 K/mm3 (4.0-10.0)
[2021-12-19 21:06] LABS: VENOUS BASE EXCESS -4.3 mmol/L (-2-2); VENOUS O2 SATURATION 38.7 % (70-80); VENOUS PCO2 43.7 mmHg (38-52); VENOUS PH 7.316 (7.310-7.410)
[2021-12-19 21:20] LABS: ALBUMIN 3.2 g/dl (3.4-5.0); CALCIUM 9.2 mg/dL (8.5-10.1)
[2021-12-19 21:23] LABS: CREATININE 1.9 mg/dL (0.55-1.3)
[2021-12-19 21:25] LABS: BILIRUBIN,TOTAL 0.6 mg/dL (0.2-1); TOT PROT 6.8 g/dl (6.4-8.2)
[2021-12-19 21:28] LABS: N-TERMINAL BNP 25332.8 pg/ml (5-450)
[2021-12-19] MEDS ORDERED: FUROSEMIDE 40 MG/4 ML INJECTABLE VIAL IVPUSH ONE (21:48)
[2021-12-19] MEDS ORDERED: FUROSEMIDE 40 MG/4 ML INJECTABLE VIAL ONE (22:29)
[2021-12-20] MEDS ORDERED: INSULIN SLIDING SCALE (NOVOLOG) 1 VIAL SQ SCH (07:00)
[2021-12-20 07:50] LABS: HEMATOCRIT 40.7 % (35.4-49); HEMOGLOBIN 13.5 GM/dL (11.7-16.9); MCH 28.1 pg (25.7-33.7); MCHC 33.1 g/dl (32.0-35.9); MEAN PLT VOLUME 10.7 fl (7.5-11.1); PLATELET COUNT 115 10^3/uL (134-434); RBC 4.79 M/mm3 (4.00-5.60); RDW 15.8 % (11.9-15.9)
[2021-12-20 08:16] LABS: BILIRUBIN,TOTAL 0.6 mg/dL (0.2-1)
[2021-12-20 08:18] LABS: BLOOD UREA NITROGEN 32.4 mg/dL (7-18); CREATININE 1.5 mg/dL (0.55-1.3); MAGNESIUM 1.7 mg/dL (1.8-2.4)
[2021-12-20 08:19] LABS: CALCIUM 8.7 mg/dL (8.5-10.1)
[2021-12-20 08:20] LABS: TOT PROT 6.5 g/dl (6.4-8.2)
[2021-12-20 08:21] LABS: PHOSPHOROUS 3.7 mg/dL (2.5-4.9)
[2021-12-20] MEDS ORDERED: HEPARIN NA (PORCINE) 5,000 UNITS/ML 1ML VIAL ONE ×3 (08:39→22:33)
[2021-12-20] MEDS: HEPARIN NA (PORCINE) 5,000 UNITS/ML 1ML VIAL SQ SCH ×3 (08:41→22:51)
[2021-12-20] MEDS ORDERED: FUROSEMIDE 40 MG/4 ML INJECTABLE VIAL ONE (09:50)
[2021-12-20] MEDS ORDERED: ASPIRIN COATED 81 MG TABLET.EC PO SCH (10:00)
[2021-12-20] MEDS ORDERED: ASPIRIN 81 MG CHEWABLE TABLETS PO SCH (10:00)
[2021-12-20] MEDS: FUROSEMIDE 40 MG/4 ML INJECTABLE VIAL IVPUSH SCH (10:35)
[2021-12-20] MEDS ORDERED: ASPIRIN COATED 81 MG TABLET.EC ONE (10:36)
[2021-12-20] MEDS ORDERED: CARVEDILOL 25 MG TABLET (FP) ONE ×2 (10:37→22:33)
[2021-12-20] MEDS: CARVEDILOL 25 MG TABLET (FP) PO SCH ×2 (10:57→22:51)
[2021-12-20] MEDS ORDERED: GABAPENTIN 100 MG CAPSULE ONE (22:51)
[2021-12-20] MEDS: GABAPENTIN 100 MG CAPSULE PO SCH (22:52)
[2021-12-21] MEDS ORDERED: HEPARIN NA (PORCINE) 5,000 UNITS/ML 1ML VIAL ONE (06:02)
[2021-12-21] MEDS: HEPARIN NA (PORCINE) 5,000 UNITS/ML 1ML VIAL SQ SCH (06:41)
[2021-12-21] MEDS: INSULIN SLIDING SCALE (NOVOLOG) 1 VIAL SQ SCH ×4 (08:59→21:34)
[2021-12-21] MEDS ORDERED: APIXABAN 2.5 MG TABLET PO SCH (10:00)
[2021-12-21] MEDS ORDERED: APIXABAN 5 MG TABLET PO SCH (10:00)
[2021-12-21 10:15] LABS: BASO % 1.3 % (0-2.0); EOS % 3.6 % (0-4.5); HEMATOCRIT 42.1 % (35.4-49); HEMOGLOBIN 13.7 GM/dL (11.7-16.9); LYMPH % 21.1 % (8-40); MCH 27.5 pg (25.7-33.7); MCHC 32.5 g/dl (32.0-35.9); MEAN CELL VOLUME 84.8 fl (80-96); MEAN PLT VOLUME 9.9 fl (7.5-11.1); MONO % 14.1 % (3.8-10.2); NEUT % 59.9 % (42.8-82.8); PLATELET COUNT 85 10^3/uL (134-434); RBC 4.96 M/mm3 (4.00-5.60); RDW 16.5 % (11.9-15.9); WHITE BLOOD COUNT 4.8 K/mm3 (4.0-10.0)
[2021-12-21 10:42] LABS: BLOOD UREA NITROGEN 28.8 mg/dL (7-18); CALCIUM 8.9 mg/dL (8.5-10.1); MAGNESIUM 1.8 mg/dL (1.8-2.4)
[2021-12-21 10:45] LABS: CREATININE 1.3 mg/dL (0.55-1.3)
[2021-12-21 10:46] LABS: PHOSPHOROUS 4.1 mg/dL (2.5-4.9)
[2021-12-21 10:50] LABS: N-TERMINAL BNP 14182.8 pg/ml (5-450)
[2021-12-21] MEDS: FUROSEMIDE 40 MG/4 ML INJECTABLE VIAL IVPUSH SCH (10:55)
[2021-12-21] MEDS: CARVEDILOL 25 MG TABLET (FP) PO SCH ×2 (10:55→21:35)
[2021-12-21] MEDS: CLOPIDOGREL BISULFATE 75 MG TABLET (FP) PO SCH (10:55)
[2021-12-21] MEDS: GABAPENTIN 100 MG CAPSULE PO SCH (21:35)
[2021-12-22] MEDS: INSULIN SLIDING SCALE (NOVOLOG) 1 VIAL SQ SCH ×4 (06:44→21:43)
[2021-12-22 08:24] LABS: BASO % 0.9 % (0-2.0); EOS % 3.5 % (0-4.5); HEMATOCRIT 39.5 % (35.4-49); LYMPH % 28.4 % (8-40); MCH 27.7 pg (25.7-33.7); MCHC 32.9 g/dl (32.0-35.9); MEAN CELL VOLUME 84.3 fl (80-96); MEAN PLT VOLUME 10.9 fl (7.5-11.1); MONO % 10.7 % (3.8-10.2); NEUT % 56.5 % (42.8-82.8); PLATELET COUNT 112 10^3/uL (134-434); RBC 4.68 M/mm3 (4.00-5.60); RDW 16.2 % (11.9-15.9); WHITE BLOOD COUNT 4.5 K/mm3 (4.0-10.0)
[2021-12-22 08:46] LABS: CALCIUM 8.4 mg/dL (8.5-10.1); MAGNESIUM 1.7 mg/dL (1.8-2.4)
[2021-12-22 08:47] LABS: BLOOD UREA NITROGEN 30.6 mg/dL (7-18)
[2021-12-22 08:50] LABS: CREATININE 1.3 mg/dL (0.55-1.3); PHOSPHOROUS 4.3 mg/dL (2.5-4.9)
[2021-12-22] MEDS: CARVEDILOL 25 MG TABLET (FP) PO SCH ×2 (09:38→21:40)
[2021-12-22] MEDS: CLOPIDOGREL BISULFATE 75 MG TABLET (FP) PO SCH (09:38)
[2021-12-22] MEDS: FUROSEMIDE 40 MG/4 ML INJECTABLE VIAL IVPUSH SCH (09:38)
[2021-12-22] MEDS: ASPIRIN COATED 81 MG TABLET.EC PO SCH (09:40)
[2021-12-22 12:50] VITALS: BMI 25.3
[2021-12-22] MEDS: CYCLOBENZAPRINE HCL 10 MG TABLET (FP) PO SCH (21:40)
[2021-12-22] MEDS: GABAPENTIN 100 MG CAPSULE PO SCH (21:41)
[2021-12-23] MEDS: INSULIN SLIDING SCALE (NOVOLOG) 1 VIAL SQ SCH ×4 (06:10→21:47)
[2021-12-23 07:39] LABS: BASO % 1.2 % (0-2.0); EOS % 3.8 % (0-4.5); HEMATOCRIT 39.3 % (35.4-49); HEMOGLOBIN 12.9 GM/dL (11.7-16.9); LYMPH % 26.7 % (8-40); MEAN PLT VOLUME 10.4 fl (7.5-11.1); MONO % 12.4 % (3.8-10.2); NEUT % 55.9 % (42.8-82.8); PLATELET COUNT 106 10^3/uL (134-434); RBC 4.62 M/mm3 (4.00-5.60); RDW 16.1 % (11.9-15.9); WHITE BLOOD COUNT 4.4 K/mm3 (4.0-10.0)
[2021-12-23 07:57] LABS: CALCIUM 8.5 mg/dL (8.5-10.1)
[2021-12-23 07:58] LABS: BLOOD UREA NITROGEN 29.3 mg/dL (7-18); MAGNESIUM 1.6 mg/dL (1.8-2.4)
[2021-12-23 08:01] LABS: CREATININE 1.4 mg/dL (0.55-1.3); PHOSPHOROUS 3.6 mg/dL (2.5-4.9)
[2021-12-23 08:06] LABS: N-TERMINAL BNP 9005.9 pg/ml (5-450)
[2021-12-23] MEDS: CYCLOBENZAPRINE HCL 10 MG TABLET (FP) PO SCH ×2 (09:01→21:36)
[2021-12-23] MEDS: CLOPIDOGREL BISULFATE 75 MG TABLET (FP) PO SCH (09:02)
[2021-12-23] MEDS: ASPIRIN COATED 81 MG TABLET.EC PO SCH (09:02)
[2021-12-23] MEDS: CARVEDILOL 25 MG TABLET (FP) PO SCH ×2 (09:02→21:36)
[2021-12-23] MEDS: FUROSEMIDE 40 MG/4 ML INJECTABLE VIAL IVPUSH SCH (09:02)
[2021-12-23] MEDS ORDERED: ACETAMINOPHEN 1000 MG/100 ML BAG IVPB PRN (10:51)
[2021-12-23] MEDS: FUROSEMIDE 40 MG TABLET (FP) PO SCH (13:33)
[2021-12-23] MEDS: GABAPENTIN 100 MG CAPSULE PO SCH (21:36)
[2021-12-24] MEDS: FUROSEMIDE 40 MG TABLET (FP) PO SCH (05:59)
[2021-12-24] MEDS: INSULIN SLIDING SCALE (NOVOLOG) 1 VIAL SQ SCH ×2 (06:09→13:53)
[2021-12-24 07:22] LABS: BASO % 1.3 % (0-2.0); EOS % 4.5 % (0-4.5); HEMATOCRIT 41.2 % (35.4-49); HEMOGLOBIN 13.5 GM/dL (11.7-16.9); LYMPH % 29.1 % (8-40); MCH 27.7 pg (25.7-33.7); MCHC 32.8 g/dl (32.0-35.9); MEAN CELL VOLUME 84.3 fl (80-96); MEAN PLT VOLUME 10.6 fl (7.5-11.1); MONO % 12.3 % (3.8-10.2); NEUT % 52.8 % (42.8-82.8); PLATELET COUNT 106 10^3/uL (134-434); RBC 4.89 M/mm3 (4.00-5.60); RDW 16.3 % (11.9-15.9); WHITE BLOOD COUNT 4.1 K/mm3 (4.0-10.0)
[2021-12-24 07:40] LABS: ALBUMIN 2.9 g/dl (3.4-5.0); CALCIUM 8.6 mg/dL (8.5-10.1)
[2021-12-24 07:41] LABS: BLOOD UREA NITROGEN 30.3 mg/dL (7-18)
[2021-12-24 07:42] LABS: CREATININE 1.3 mg/dL (0.55-1.3); MAGNESIUM 1.7 mg/dL (1.8-2.4); PHOSPHOROUS 3.6 mg/dL (2.5-4.9)
[2021-12-24 07:44] LABS: BILIRUBIN,TOTAL 0.5 mg/dL (0.2-1); TOT PROT 6.2 g/dl (6.4-8.2)
[2021-12-24] MEDS: ASPIRIN COATED 81 MG TABLET.EC PO SCH (09:50)
[2021-12-24] MEDS: CLOPIDOGREL BISULFATE 75 MG TABLET (FP) PO SCH (09:50)
[2021-12-24] MEDS: CARVEDILOL 25 MG TABLET (FP) PO SCH (09:50)
[2021-12-24] MEDS: CYCLOBENZAPRINE HCL 10 MG TABLET (FP) PO SCH (09:50)
[2021-12-24] MEDS ORDERED: FUROSEMIDE 40 MG TABLET (FP) PO SCH (14:00)
[2021-12-24] MEDS ORDERED: INSULIN SLIDING SCALE (NOVOLOG) 1 VIAL SQ SCH (16:30)
[2021-12-24 18:16] VITALS: BP 105/51; PULSE 63; TEMP 97.5
[2021-12-24] MEDS ORDERED: ACETAMINOPHEN 500 MG TABLET (FP) PO ONE (18:19)
[2021-12-24] MEDS ORDERED: CYCLOBENZAPRINE HCL 10 MG TABLET (FP) PO SCH (22:00)
[2021-12-24] MEDS ORDERED: GABAPENTIN 100 MG CAPSULE PO SCH (22:00)
[2021-12-24] MEDS ORDERED: CARVEDILOL 25 MG TABLET (FP) PO SCH (22:00)
[2021-12-25] MEDS ORDERED: ASPIRIN COATED 81 MG TABLET.EC PO SCH (10:00)
[2021-12-25] MEDS ORDERED: CLOPIDOGREL BISULFATE 75 MG TABLET (FP) PO SCH (10:00)
== END 2021-12-24 20:00 | disposition home or self-care (01) | DRG 291 ==
LOC: JER 17:23 → JERBED 21:49 → J4W 12-21 10:37 → J5S 12-24 11:44
PROVIDERS: ADMIT Internal Medicine; ATTEND Internal Medicine
DX: I13.0 Hypertensive heart and chronic kidney disease with heart failure and stage 1 through stage 4 chronic kidney disease, or unspecified chronic kidney disease (principal); I50.23 Acute on chronic systolic (congestive) heart failure; N17.9 Acute kidney failure, unspecified; D69.6 Thrombocytopenia, unspecified; I48.0 Paroxysmal atrial fibrillation; N18.9 Chronic kidney disease, unspecified; E11.22 Type 2 diabetes mellitus with diabetic chronic kidney disease; Z98.61 Coronary angioplasty status; N40.0 Benign prostatic hyperplasia without lower urinary tract symptoms
CPT/HCPCS: 0241U-QW; 36415; 71045-TC-FY; 71046-TC-FY; 71250-TC; 74177-TC; 76775-TC; 80048; 80053; 80061; 82550; 82570; 82607; 82728; 82746; 82803; 82962; 83540; 83550; 83735; 83880; 84100; 84156; 84300; 84443; 84484; 85025; 85027; 93005; 93010; 93306-TC; 94761; 97116-GP; 97162-GP; 99285-25; J1644; Q9967

== ENCOUNTER 2022-02-06 14:58 | Observation (INO) | payer OTHER ==
[2022-02-06 15:15] VITALS: BMI 25.8
[2022-02-06 16:47] LABS: BASO % 1.1 % (0-2.0); HEMATOCRIT 40.6 % (35.4-49); HEMOGLOBIN 13.3 GM/dL (11.7-16.9); LYMPH % 18.4 % (8-40); MCH 27.6 pg (25.7-33.7); MCHC 32.8 g/dl (32.0-35.9); MEAN CELL VOLUME 84.2 fl (80-96); MEAN PLT VOLUME 9.8 fl (7.5-11.1); MONO % 9.2 % (3.8-10.2); NEUT % 70.3 % (42.8-82.8); PLATELET COUNT 142 10^3/uL (134-434); RBC 4.83 M/mm3 (4.00-5.60); RDW 16.6 % (11.9-15.9); WHITE BLOOD COUNT 5.2 K/mm3 (4.0-10.0)
[2022-02-06] MEDS ORDERED: ACETAMINOPHEN 500 MG TABLET (FP) ONE (17:17)
[2022-02-06 17:26] LABS: CALCIUM 8.4 mg/dL (8.5-10.1)
[2022-02-06 17:27] LABS: BLOOD UREA NITROGEN 31.2 mg/dL (7-18)
[2022-02-06 17:30] LABS: CREATININE 1.5 mg/dL (0.55-1.3)
[2022-02-06 17:31] LABS: BILIRUBIN,TOTAL 0.7 mg/dL (0.2-1); TOT PROT 6.6 g/dl (6.4-8.2)
[2022-02-06 17:34] LABS: N-TERMINAL BNP 11643.1 pg/ml (5-450)
[2022-02-06 17:58] LABS: INR 1.19 (0.83-1.09); PROTHROMBIN TIME (PATIENT) 13.7 SEC (9.7-13.0)
[2022-02-06 18:01] LABS: ACTIVATED PTT 32.7 SECONDS (25.2-36.5)
[2022-02-06] MEDS ORDERED: FUROSEMIDE 40 MG/4 ML INJECTABLE VIAL IVPUSH ONE (18:33)
[2022-02-06] MEDS ORDERED: FUROSEMIDE 40 MG/4 ML INJECTABLE VIAL ONE (18:37)
[2022-02-06 19:16] LABS: EPI CELLS 8 /uL (0-25.1); HYALINE CASTS 0 /uL (0-3.1); URINE APPEARANCE CLOUDY; URINE BACTERIA 45 /uL (0-1359); URINE BILIRUBIN NEGATIVE (NEGATIVE); URINE COLOR YELLOW; URINE GLUCOSE (UA) NEGATIVE (NEGATIVE); URINE KETONE NEGATIVE (NEGATIVE); URINE LEUK ESTERASE NEGATIVE (NEGATIVE); URINE NITRITE NEGATIVE (NEGATIVE); URINE PROTEIN 1+ (NEGATIVE); URINE WBC 5 /uL (0-25.8)
[2022-02-06 22:40] LABS: URINE RBC 54.9 /uL (0-23.9)
[2022-02-07] MEDS ORDERED: HEPARIN NA (PORCINE) 5,000 UNITS/ML 1ML VIAL ONE (06:25)
[2022-02-07] MEDS ORDERED: FUROSEMIDE 40 MG/4 ML INJECTABLE VIAL ONE (06:25)
[2022-02-07] MEDS: HEPARIN NA (PORCINE) 5,000 UNITS/ML 1ML VIAL SQ SCH ×2 (06:35→13:36)
[2022-02-07] MEDS: FUROSEMIDE 40 MG/4 ML INJECTABLE VIAL IVPUSH SCH ×2 (06:36→13:37)
[2022-02-07] MEDS: INSULIN SLIDING SCALE (NOVOLOG) 1 VIAL SQ SCH ×4 (08:00→21:38)
[2022-02-07 08:09] LABS: ALBUMIN 3.1 g/dl (3.4-5.0); CALCIUM 8.9 mg/dL (8.5-10.1); MAGNESIUM 1.9 mg/dL (1.8-2.4)
[2022-02-07 08:12] LABS: PHOSPHOROUS 2.8 mg/dL (2.5-4.9)
[2022-02-07 08:13] LABS: CREATININE 1.6 mg/dL (0.55-1.3)
[2022-02-07 08:14] LABS: BILIRUBIN,TOTAL 0.8 mg/dL (0.2-1); TOT PROT 6.8 g/dl (6.4-8.2)
[2022-02-07 08:16] LABS: BASO % 1.3 % (0-2.0); HEMATOCRIT 41.6 % (35.4-49); HEMOGLOBIN 13.6 GM/dL (11.7-16.9); LYMPH % 22.4 % (8-40); MCH 27.7 pg (25.7-33.7); MCHC 32.8 g/dl (32.0-35.9); MEAN CELL VOLUME 84.4 fl (80-96); MEAN PLT VOLUME 10.1 fl (7.5-11.1); MONO % 12.7 % (3.8-10.2); NEUT % 61.6 % (42.8-82.8); PLATELET COUNT 148 10^3/uL (134-434); RBC 4.93 M/mm3 (4.00-5.60); RDW 16.8 % (11.9-15.9); WHITE BLOOD COUNT 5.3 K/mm3 (4.0-10.0)
[2022-02-07 12:18] VITALS: RESP 18
[2022-02-07] MEDS ORDERED: MAGNESIUM OXIDE 400 MG TABLET (FP) PO ONE (16:27)
[2022-02-07] MEDS ORDERED: CARVEDILOL 6.25 MG TABLET (FP) PO ONE (16:28)
[2022-02-07] MEDS: CLOPIDOGREL BISULFATE 75 MG TABLET (FP) PO SCH (17:03)
[2022-02-07] MEDS: CARVEDILOL 6.25 MG TABLET (FP) PO SCH (21:36)
[2022-02-07] MEDS: APIXABAN 5 MG TABLET PO SCH (21:36)
[2022-02-07] MEDS ORDERED: ATORVASTATIN CA 40 MG TABLET (FP) PO SCH (22:00)
[2022-02-08] MEDS: FUROSEMIDE 40 MG/4 ML INJECTABLE VIAL IVPUSH SCH ×2 (06:22→13:32)
[2022-02-08] MEDS: INSULIN SLIDING SCALE (NOVOLOG) 1 VIAL SQ SCH ×2 (06:46→11:28)
[2022-02-08] MEDS: CARVEDILOL 6.25 MG TABLET (FP) PO SCH (09:42)
[2022-02-08] MEDS: CLOPIDOGREL BISULFATE 75 MG TABLET (FP) PO SCH (09:42)
[2022-02-08] MEDS: APIXABAN 5 MG TABLET PO SCH (09:42)
[2022-02-08 14:46] VITALS: BP 115/75; PULSE 70; TEMP 98
== END 2022-02-08 15:35 | disposition home or self-care (01) ==
LOC: JER 14:58 → JERBED 18:19 → INTOOBSV 18:19 → J4W 02-07 11:12
PROVIDERS: ADMIT Internal Medicine; ATTEND Nurse Practitioner Family
PROC: 3E033GC Introduction of Other Therapeutic Substance into Peripheral Vein, Percutaneous Approach (ICD-10-PCS; principal; 2022-02-06)
DX: I25.10 Atherosclerotic heart disease of native coronary artery without angina pectoris (principal); I11.0 Hypertensive heart disease with heart failure; I50.9 Heart failure, unspecified; Z88.0 Allergy status to penicillin; Z95.5 Presence of coronary angioplasty implant and graft; I50.23 Acute on chronic systolic (congestive) heart failure; I48.91 Unspecified atrial fibrillation; E11.9 Type 2 diabetes mellitus without complications; Z86.79 Personal history of other diseases of the circulatory system; Z29.8 Encounter for other specified prophylactic measures; Z79.01 Long term (current) use of anticoagulants
CPT/HCPCS: 36415; 71046-TC-FY; 80053; 81003; 82962; 83735; 83880; 84100; 84484; 85025; 85610; 85730; 87086; 93005; 93010; 96372; 96374; 99285-25; C9803-CS; G0378; J1644; U0003; U0005

== ENCOUNTER 2022-04-04 17:16 | Inpatient (IN) | payer OTHER ==
[2022-04-04] MEDS ORDERED: FUROSEMIDE 40 MG/4 ML INJECTABLE VIAL IVPUSH ONE (18:10)
[2022-04-04 19:10] LABS: BASO % 0.3 % (0-2.0); EOS % 0.5 % (0-4.5); HEMATOCRIT 42.1 % (35.4-49); HEMOGLOBIN 13.6 GM/dL (11.7-16.9); LYMPH % 13.8 % (8-40); MCH 26.7 pg (25.7-33.7); MCHC 32.2 g/dl (32.0-35.9); MEAN CELL VOLUME 82.9 fl (80-96); MEAN PLT VOLUME 10.4 fl (7.5-11.1); MONO % 13.2 % (3.8-10.2); NEUT % 72.2 % (42.8-82.8); PLATELET COUNT 144 10^3/uL (134-434); RBC 5.08 M/mm3 (4.00-5.60); RDW 16.8 % (11.9-15.9); WHITE BLOOD COUNT 7.2 K/mm3 (4.0-10.0)
[2022-04-04 19:17] LABS: INR 1.34 (0.83-1.09); PROTHROMBIN TIME (PATIENT) 15.4 SEC (9.7-13.0)
[2022-04-04 19:19] LABS: ACTIVATED PTT 31.5 SECONDS (25.2-36.5)
[2022-04-04 19:24] LABS: CALCIUM 8.7 mg/dL (8.5-10.1)
[2022-04-04 19:25] LABS: BLOOD UREA NITROGEN 25.6 mg/dL (7-18)
[2022-04-04 19:28] LABS: CREATININE 1.3 mg/dL (0.55-1.3)
[2022-04-04 19:30] LABS: BILIRUBIN,TOTAL 1.1 mg/dL (0.2-1); TOT PROT 6.5 g/dl (6.4-8.2)
[2022-04-04 19:33] LABS: N-TERMINAL BNP 17465.3 pg/ml (5-450)
[2022-04-04] MEDS ORDERED: guaiFENesin 200 MG/10 ML 10 ML UNIT-DOSE CUPS PO ONE (19:53)
[2022-04-04] MEDS ORDERED: guaiFENesin 200 MG/10 ML 10 ML UNIT-DOSE CUPS ONE (20:10)
[2022-04-04] MEDS ORDERED: FUROSEMIDE 40 MG/4 ML INJECTABLE VIAL ONE (20:11)
[2022-04-04] MEDS ORDERED: AZITHROMYCIN IVPB 500 MG in DEXTROSE 5%-WATER - 250 ML IVPB ONE (20:47)
[2022-04-04] MEDS ORDERED: AZITHROMYCIN IVPB 500 MG/250 ML BAG IVPB ONE (21:38)
[2022-04-04] MEDS ORDERED: AZTREONAM 2 GM VIAL (RESTRICTED TO ID) ONE (23:50)
[2022-04-05] MEDS: AZTREONAM 2 GM in DEXTROSE 5%-WATER 100 ML IVPB SCH ×2 (00:09→06:12)
[2022-04-05] MEDS ORDERED: ACETAMINOPHEN 325 MG TABLET (FP) PO ONE (00:29)
[2022-04-05 02:57] VITALS: BMI 28.6
[2022-04-05] MEDS: INSULIN SLIDING SCALE (NOVOLOG) 1 VIAL SQ SCH ×4 (06:10→22:50)
[2022-04-05 07:53] LABS: BASO % 0.5 % (0-2.0); EOS % 0.5 % (0-4.5); HEMATOCRIT 37.5 % (35.4-49); HEMOGLOBIN 12.5 GM/dL (11.7-16.9); LYMPH % 11.2 % (8-40); MCH 27.3 pg (25.7-33.7); MCHC 33.4 g/dl (32.0-35.9); MEAN CELL VOLUME 81.7 fl (80-96); MONO % 14.4 % (3.8-10.2); NEUT % 73.4 % (42.8-82.8); PLATELET COUNT 108 10^3/uL (134-434); RBC 4.59 M/mm3 (4.00-5.60); RDW 16.2 % (11.9-15.9); WHITE BLOOD COUNT 7.1 K/mm3 (4.0-10.0)
[2022-04-05 08:20] LABS: CALCIUM 8.4 mg/dL (8.5-10.1)
[2022-04-05 08:21] LABS: ALBUMIN 2.7 g/dl (3.4-5.0); BLOOD UREA NITROGEN 21.4 mg/dL (7-18); INR 1.41 (0.83-1.09); MAGNESIUM 1.9 mg/dL (1.8-2.4); PROTHROMBIN TIME (PATIENT) 16.3 SEC (9.7-13.0)
[2022-04-05 08:24] LABS: BILIRUBIN,TOTAL 1.2 mg/dL (0.2-1); CREATININE 1.2 mg/dL (0.55-1.3); PHOSPHOROUS 2.5 mg/dL (2.5-4.9); TOT PROT 5.7 g/dl (6.4-8.2)
[2022-04-05] MEDS ORDERED: FUROSEMIDE 40 MG/4 ML INJECTABLE VIAL IVPUSH SCH (10:00)
[2022-04-05] MEDS ORDERED: AZITHROMYCIN 250 MG TABLET PO SCH (10:00)
[2022-04-05] MEDS: APIXABAN 5 MG TABLET PO SCH ×2 (10:31→22:49)
[2022-04-05] MEDS: CLOPIDOGREL BISULFATE 75 MG TABLET (FP) PO SCH (10:31)
[2022-04-05] MEDS: FUROSEMIDE 40 MG/4 ML INJECTABLE VIAL IVPUSH SCH (14:53)
[2022-04-05] MEDS: AZTREONAM 2 GM/10 ML SYRINGE (RESTRICTED TO ID) IVPUSH SCH (18:22)
[2022-04-05] MEDS: ATORVASTATIN CA 40 MG TABLET (FP) PO SCH (22:49)
[2022-04-05] MEDS: CARVEDILOL 6.25 MG TABLET (FP) PO SCH (22:49)
[2022-04-05] MEDS: SACUBITRIL/VALSARTAN 24 MG-26 MG TABLET PO SCH (22:49)
[2022-04-05] MEDS: BENZOCAINE/MENTH/CETYLPYRD CL 1 EACH LOZENGE MM PRN (22:50)
[2022-04-06] MEDS ORDERED: METOPROLOL TARTRATE 5 MG/5 ML VIAL IVPUSH PRN (03:00)
[2022-04-06] MEDS: METOPROLOL TARTRATE 5 MG/5 ML VIAL IVPUSH PRN ×2 (03:52→14:17)
[2022-04-06] MEDS: INSULIN SLIDING SCALE (NOVOLOG) 1 VIAL SQ SCH ×4 (06:23→21:52)
[2022-04-06] MEDS: FUROSEMIDE 40 MG/4 ML INJECTABLE VIAL IVPUSH SCH ×2 (06:23→15:26)
[2022-04-06 08:30] LABS: HEMATOCRIT 39.5 % (35.4-49); HEMOGLOBIN 13.1 GM/dL (11.7-16.9); MCH 27.3 pg (25.7-33.7); MCHC 33.2 g/dl (32.0-35.9); MEAN CELL VOLUME 82.2 fl (80-96); MEAN PLT VOLUME 9.9 fl (7.5-11.1); PLATELET COUNT 123 10^3/uL (134-434); RDW 16.3 % (11.9-15.9); WHITE BLOOD COUNT 6.6 K/mm3 (4.0-10.0)
[2022-04-06 08:52] LABS: ALBUMIN 2.8 g/dl (3.4-5.0); BLOOD UREA NITROGEN 23.2 mg/dL (7-18); CALCIUM 8.7 mg/dL (8.5-10.1)
[2022-04-06 08:55] LABS: BILIRUBIN,TOTAL 1.2 mg/dL (0.2-1); CREATININE 1.3 mg/dL (0.55-1.3)
[2022-04-06 08:56] LABS: TOT PROT 6.1 g/dl (6.4-8.2)
[2022-04-06] MEDS: APIXABAN 5 MG TABLET PO SCH ×2 (09:52→21:52)
[2022-04-06] MEDS: CLOPIDOGREL BISULFATE 75 MG TABLET (FP) PO SCH (09:52)
[2022-04-06] MEDS: CARVEDILOL 6.25 MG TABLET (FP) PO SCH (09:52)
[2022-04-06] MEDS: SACUBITRIL/VALSARTAN 24 MG-26 MG TABLET PO SCH ×2 (09:53→21:52)
[2022-04-06] MEDS ORDERED: SACUBITRIL/VALSARTAN 24 MG-26 MG TABLET PO SCH (10:00)
[2022-04-06] MEDS ORDERED: POTASSIUM CHLORIDE TABS 20 MEQ TABLET.ER (FP) PO ONE (10:41)
[2022-04-06] MEDS ORDERED: MAGNESIUM SULF 50% (8.12 MEQ/2 ML-1 GM VIAL) IVPB ONE (10:44)
[2022-04-06 11:06] LABS: MAGNESIUM 1.7 mg/dL (1.8-2.4)
[2022-04-06] MEDS: ATORVASTATIN CA 40 MG TABLET (FP) PO SCH (21:52)
[2022-04-06] MEDS: METOPROLOL TARTRATE 25 MG TABLET (FP) PO SCH (21:52)
[2022-04-06] MEDS: BENZOCAINE/MENTH/CETYLPYRD CL 1 EACH LOZENGE MM PRN (21:53)
[2022-04-07] MEDS ORDERED: ACETAMINOPHEN 1000 MG/100 ML BAG IVPB ONE (02:36)
[2022-04-07] MEDS: FUROSEMIDE 40 MG/4 ML INJECTABLE VIAL IVPUSH SCH ×2 (06:42→14:00)
[2022-04-07] MEDS: INSULIN SLIDING SCALE (NOVOLOG) 1 VIAL SQ SCH ×4 (06:43→22:34)
[2022-04-07] MEDS: METOPROLOL TARTRATE 5 MG/5 ML VIAL IVPUSH PRN (06:54)
[2022-04-07 08:34] LABS: HEMATOCRIT 40.5 % (35.4-49); HEMOGLOBIN 13.2 GM/dL (11.7-16.9); MCHC 32.6 g/dl (32.0-35.9); MEAN PLT VOLUME 9.8 fl (7.5-11.1); PLATELET COUNT 131 10^3/uL (134-434); RBC 4.88 M/mm3 (4.00-5.60); RDW 16.4 % (11.9-15.9)
[2022-04-07 08:52] LABS: ALBUMIN 2.7 g/dl (3.4-5.0); BLOOD UREA NITROGEN 26.4 mg/dL (7-18); CALCIUM 8.6 mg/dL (8.5-10.1); MAGNESIUM 1.9 mg/dL (1.8-2.4)
[2022-04-07 08:55] LABS: CREATININE 1.3 mg/dL (0.55-1.3)
[2022-04-07 08:57] LABS: BILIRUBIN,TOTAL 1.1 mg/dL (0.2-1)
[2022-04-07] MEDS: METOPROLOL TARTRATE 25 MG TABLET (FP) PO SCH ×2 (09:33→22:26)
[2022-04-07] MEDS: APIXABAN 5 MG TABLET PO SCH ×2 (09:33→22:26)
[2022-04-07] MEDS: SACUBITRIL/VALSARTAN 24 MG-26 MG TABLET PO SCH ×2 (09:33→22:26)
[2022-04-07] MEDS ORDERED: metoPROLOL SUCCINATE 25 MG TAB.SR.24H (FP) PO ONE (14:00)
[2022-04-07] MEDS ORDERED: POTASSIUM CHLORIDE TABS 20 MEQ TABLET.ER (FP) PO ONE (16:08)
[2022-04-07] MEDS: ATORVASTATIN CA 40 MG TABLET (FP) PO SCH (22:26)
[2022-04-08] MEDS: INSULIN SLIDING SCALE (NOVOLOG) 1 VIAL SQ SCH ×4 (06:03→23:15)
[2022-04-08] MEDS: METOPROLOL TARTRATE 5 MG/5 ML VIAL IVPUSH PRN (06:20)
[2022-04-08] MEDS: FUROSEMIDE 40 MG/4 ML INJECTABLE VIAL IVPUSH SCH ×2 (06:20→14:27)
[2022-04-08 09:00] LABS: CALCIUM 8.6 mg/dL (8.5-10.1)
[2022-04-08 09:01] LABS: ALBUMIN 2.6 g/dl (3.4-5.0); BLOOD UREA NITROGEN 29.6 mg/dL (7-18)
[2022-04-08 09:04] LABS: CREATININE 1.3 mg/dL (0.55-1.3)
[2022-04-08 09:06] LABS: BILIRUBIN,TOTAL 0.8 mg/dL (0.2-1); TOT PROT 5.9 g/dl (6.4-8.2)
[2022-04-08 09:09] LABS: N-TERMINAL BNP 13223.7 pg/ml (5-450)
[2022-04-08] MEDS: METOPROLOL TARTRATE 25 MG TABLET (FP) PO SCH ×2 (09:41→21:56)
[2022-04-08] MEDS: APIXABAN 5 MG TABLET PO SCH ×2 (09:41→23:15)
[2022-04-08] MEDS ORDERED: guaiFENesin/CODEINE 5 ML UNIT-DOSE CUPS PO PRN (10:51)
[2022-04-08] MEDS ORDERED: guaiFENesin 200 MG/10 ML 10 ML UNIT-DOSE CUPS PO PRN (10:51)
[2022-04-08] MEDS: SACUBITRIL/VALSARTAN 24 MG-26 MG TABLET PO SCH ×2 (10:58→21:57)
[2022-04-08] MEDS ORDERED: AZITHROMYCIN IVPB 500 MG in DEXTROSE 5%-WATER - 250 ML IVPB ONE (14:40)
[2022-04-08] MEDS ORDERED: AZITHROMYCIN 250 MG TABLET PO ONE ×2 (14:41→16:30)
[2022-04-08] MEDS ORDERED: CEFEPIME 2 GM in DEXTROSE 5%-WATER - 100 ML IVPB SCH (14:45)
[2022-04-08] MEDS: CEFTRIAXONE 1 GM in DEXTROSE 5%-WATER - 50 ML IVPB SCH (15:58)
[2022-04-08] MEDS: ATORVASTATIN CA 40 MG TABLET (FP) PO SCH (21:56)
[2022-04-08] MEDS: guaiFENesin 600 MG TABLET.ER (FP) PO SCH (22:00)
[2022-04-09] MEDS ORDERED: ACETAMINOPHEN 325 MG TABLET (FP) PO ONE (01:40)
[2022-04-09] MEDS: FUROSEMIDE 40 MG/4 ML INJECTABLE VIAL IVPUSH SCH ×2 (05:44→15:02)
[2022-04-09] MEDS: INSULIN SLIDING SCALE (NOVOLOG) 1 VIAL SQ SCH ×4 (06:14→21:53)
[2022-04-09 08:08] LABS: BASO % 0.5 % (0-2.0); EOS % 0.3 % (0-4.5); HEMOGLOBIN 13.1 GM/dL (11.7-16.9); MCH 26.9 pg (25.7-33.7); MCHC 32.8 g/dl (32.0-35.9); MEAN CELL VOLUME 82.1 fl (80-96); MEAN PLT VOLUME 10.5 fl (7.5-11.1); MONO % 7.5 % (3.8-10.2); NEUT % 79.7 % (42.8-82.8); PLATELET COUNT 158 10^3/uL (134-434); RBC 4.88 M/mm3 (4.00-5.60); RDW 16.3 % (11.9-15.9); WHITE BLOOD COUNT 6.2 K/mm3 (4.0-10.0)
[2022-04-09 08:28] LABS: CALCIUM 8.6 mg/dL (8.5-10.1)
[2022-04-09 08:29] LABS: ALBUMIN 2.7 g/dl (3.4-5.0); BLOOD UREA NITROGEN 35.4 mg/dL (7-18); MAGNESIUM 2.1 mg/dL (1.8-2.4)
[2022-04-09 08:31] LABS: CREATININE 1.6 mg/dL (0.55-1.3)
[2022-04-09 08:33] LABS: BILIRUBIN,TOTAL 0.8 mg/dL (0.2-1)
[2022-04-09] MEDS: METOPROLOL TARTRATE 5 MG/5 ML VIAL IVPUSH PRN (08:40)
[2022-04-09] MEDS ORDERED: AZITHROMYCIN IVPB 250 MG in DEXTROSE 5%-WATER - 250 ML IVPB SCH (10:00)
[2022-04-09] MEDS: APIXABAN 5 MG TABLET PO SCH ×2 (10:15→21:37)
[2022-04-09] MEDS: guaiFENesin 600 MG TABLET.ER (FP) PO SCH ×2 (10:16→21:52)
[2022-04-09] MEDS: CEFTRIAXONE 1 GM in DEXTROSE 5%-WATER - 50 ML IVPB SCH (10:16)
[2022-04-09] MEDS: METOPROLOL TARTRATE 25 MG TABLET (FP) PO SCH ×2 (10:16→21:52)
[2022-04-09] MEDS: SACUBITRIL/VALSARTAN 24 MG-26 MG TABLET PO SCH ×2 (11:47→21:36)
[2022-04-09] MEDS: DOXYCYCLINE HYCLATE 100 MG CAPSULE PO SCH (17:32)
[2022-04-09] MEDS: ATORVASTATIN CA 40 MG TABLET (FP) PO SCH (21:37)
[2022-04-10] MEDS: BENZOCAINE/MENTH/CETYLPYRD CL 1 EACH LOZENGE MM PRN (07:48)
[2022-04-10 08:33] LABS: HEMATOCRIT 39.4 % (35.4-49); HEMOGLOBIN 12.8 GM/dL (11.7-16.9); MCH 26.6 pg (25.7-33.7); MCHC 32.6 g/dl (32.0-35.9); MEAN CELL VOLUME 81.6 fl (80-96); MEAN PLT VOLUME 10.2 fl (7.5-11.1); PLATELET COUNT 161 10^3/uL (134-434); RBC 4.83 M/mm3 (4.00-5.60); RDW 16.2 % (11.9-15.9); WHITE BLOOD COUNT 5.6 K/mm3 (4.0-10.0)
[2022-04-10 08:46] LABS: BLOOD UREA NITROGEN 36.1 mg/dL (7-18); CALCIUM 8.7 mg/dL (8.5-10.1)
[2022-04-10 08:48] LABS: ALBUMIN 2.7 g/dl (3.4-5.0)
[2022-04-10 08:50] LABS: CREATININE 1.5 mg/dL (0.55-1.3)
[2022-04-10 08:51] LABS: BILIRUBIN,TOTAL 0.7 mg/dL (0.2-1); TOT PROT 5.8 g/dl (6.4-8.2)
[2022-04-10] MEDS: DOXYCYCLINE HYCLATE 100 MG CAPSULE PO SCH (09:42)
[2022-04-10] MEDS: SACUBITRIL/VALSARTAN 24 MG-26 MG TABLET PO SCH (09:42)
[2022-04-10] MEDS: guaiFENesin 600 MG TABLET.ER (FP) PO SCH (09:42)
[2022-04-10] MEDS: APIXABAN 5 MG TABLET PO SCH (09:42)
[2022-04-10 09:48] LABS: MAGNESIUM 1.9 mg/dL (1.8-2.4)
[2022-04-10] MEDS ORDERED: DOXYCYCLINE HYCLATE 100 MG CAPSULE PO SCH (10:00)
[2022-04-10] MEDS ORDERED: FUROSEMIDE 40 MG TABLET (FP) PO SCH ×2 (10:00)
[2022-04-10] MEDS: METOPROLOL TARTRATE 25 MG TABLET (FP) PO SCH (10:43)
[2022-04-10] MEDS: INSULIN SLIDING SCALE (NOVOLOG) 1 VIAL SQ SCH ×2 (12:56→12:59)
[2022-04-10 15:46] VITALS: RESP 18; TEMP 98.1
[2022-04-10 16:12] VITALS: BP 110/61; PULSE 82
== END 2022-04-10 16:35 | disposition home or self-care (01) | DRG 291 ==
LOC: JER 17:16 → JERBED 19:00 → OBSVTOIN 19:00 → J4W 04-05 02:10
PROVIDERS: ADMIT Internal Medicine; ATTEND Internal Medicine
DX: I11.0 Hypertensive heart disease with heart failure (principal); I50.23 Acute on chronic systolic (congestive) heart failure; J18.9 Pneumonia, unspecified organism; N17.9 Acute kidney failure, unspecified; I25.10 Atherosclerotic heart disease of native coronary artery without angina pectoris; E11.9 Type 2 diabetes mellitus without complications; E78.5 Hyperlipidemia, unspecified; Z79.84 Long term (current) use of oral hypoglycemic drugs; N40.0 Benign prostatic hyperplasia without lower urinary tract symptoms; Z86.73 Personal history of transient ischemic attack (TIA), and cerebral infarction without residual deficits; I48.0 Paroxysmal atrial fibrillation; I25.2 Old myocardial infarction; E11.65 Type 2 diabetes mellitus with hyperglycemia
CPT/HCPCS: 0241U-QW; 36415; 71046-TC-FY; 80053; 82962; 83735; 83880; 84100; 84484; 85025; 85027; 85610; 85730; 93005; 93010; 97116-GP; 97162-GP; 99285-25

== ENCOUNTER 2022-04-23 15:18 | Observation (INO) | payer OTHER ==
[2022-04-23 19:24] LABS: BASO % 0.5 % (0-2.0); EOS % 0.7 % (0-4.5); HEMATOCRIT 46.5 % (35.4-49); HEMOGLOBIN 14.9 GM/dL (11.7-16.9); LYMPH % 29.1 % (8-40); MCH 26.4 pg (25.7-33.7); MEAN CELL VOLUME 82.3 fl (80-96); MEAN PLT VOLUME 9.9 fl (7.5-11.1); NEUT % 58.7 % (42.8-82.8); PLATELET COUNT 177 10^3/uL (134-434); RBC 5.66 M/mm3 (4.00-5.60); RDW 17.1 % (11.9-15.9); WHITE BLOOD COUNT 5.3 K/mm3 (4.0-10.0)
[2022-04-23 19:32] LABS: INR 1.68 (0.83-1.09); PROTHROMBIN TIME (PATIENT) 19.4 SEC (9.7-13.0)
[2022-04-23 19:45] LABS: CALCIUM 9.6 mg/dL (8.5-10.1)
[2022-04-23 19:46] LABS: BLOOD UREA NITROGEN 44.7 mg/dL (7-18)
[2022-04-23 19:49] LABS: CREATININE 2.2 mg/dL (0.55-1.3)
[2022-04-23 19:51] LABS: TOT PROT 7.2 g/dl (6.4-8.2)
[2022-04-23 19:54] LABS: N-TERMINAL BNP 25200.3 pg/ml (5-450)
[2022-04-23 20:02] LABS: ALBUMIN 3.3 g/dl (3.4-5.0)
[2022-04-23] MEDS ORDERED: ASPIRIN 81 MG CHEWABLE TABLETS PO ONE (20:42)
[2022-04-23] MEDS ORDERED: ASPIRIN 325 MG TABLET ONE (20:53)
[2022-04-23] MEDS ORDERED: FUROSEMIDE 40 MG/4 ML INJECTABLE VIAL IVPUSH ONE (21:29)
[2022-04-23] MEDS ORDERED: FUROSEMIDE 40 MG/4 ML INJECTABLE VIAL ONE (21:38)
[2022-04-23] MEDS ORDERED: METOPROLOL TARTRATE 25 MG TABLET (FP) PO SCH (23:30)
[2022-04-24] MEDS: APIXABAN 5 MG TABLET PO SCH ×3 (00:11→21:22)
[2022-04-24] MEDS ORDERED: METOPROLOL TARTRATE 50 MG TABLET (FP) ONE (00:12)
[2022-04-24] MEDS ORDERED: APIXABAN 5 MG TABLET ONE (00:12)
[2022-04-24] MEDS: SACUBITRIL/VALSARTAN 24 MG-26 MG TABLET PO SCH ×3 (01:32→21:22)
[2022-04-24 06:15] VITALS: BMI 27.1
[2022-04-24] MEDS: FUROSEMIDE 40 MG/4 ML INJECTABLE VIAL IVPUSH SCH ×2 (06:25→14:30)
[2022-04-24] MEDS: INSULIN SLIDING SCALE (NOVOLOG) 1 VIAL SQ SCH ×4 (06:26→22:39)
[2022-04-24 06:45] LABS: URINE APPEARANCE CLEAR; URINE BILIRUBIN NEGATIVE (NEGATIVE); URINE COLOR YELLOW; URINE GLUCOSE (UA) NEGATIVE (NEGATIVE); URINE KETONE NEGATIVE (NEGATIVE); URINE LEUK ESTERASE NEGATIVE (NEGATIVE); URINE NITRITE NEGATIVE (NEGATIVE); URINE PROTEIN NEGATIVE (NEGATIVE); URINE UROBILINOGEN 0.2 mg/dL (0.2-1.0)
[2022-04-24 08:59] LABS: BASO % 0.4 % (0-2.0); HEMATOCRIT 41.4 % (35.4-49); HEMOGLOBIN 13.6 GM/dL (11.7-16.9); LYMPH % 26.4 % (8-40); MCH 26.9 pg (25.7-33.7); MCHC 32.9 g/dl (32.0-35.9); MEAN CELL VOLUME 81.7 fl (80-96); MEAN PLT VOLUME 10.4 fl (7.5-11.1); MONO % 15.4 % (3.8-10.2); NEUT % 55.8 % (42.8-82.8); PLATELET COUNT 150 10^3/uL (134-434); RBC 5.07 M/mm3 (4.00-5.60); RDW 16.7 % (11.9-15.9); WHITE BLOOD COUNT 4.3 K/mm3 (4.0-10.0)
[2022-04-24 09:56] LABS: CALCIUM 8.7 mg/dL (8.5-10.1)
[2022-04-24 09:57] LABS: ALBUMIN 2.7 g/dl (3.4-5.0); BLOOD UREA NITROGEN 44.6 mg/dL (7-18)
[2022-04-24 10:00] LABS: PHOSPHOROUS 3.4 mg/dL (2.5-4.9)
[2022-04-24 10:02] LABS: TOT PROT 5.7 g/dl (6.4-8.2)
[2022-04-24 10:05] LABS: N-TERMINAL BNP 23114.6 pg/ml (5-450)
[2022-04-25] MEDS: INSULIN SLIDING SCALE (NOVOLOG) 1 VIAL SQ SCH ×4 (06:01→21:28)
[2022-04-25] MEDS: FUROSEMIDE 40 MG/4 ML INJECTABLE VIAL IVPUSH SCH (06:01)
[2022-04-25 07:47] LABS: BASO % 1.1 % (0-2.0); HEMATOCRIT 40.9 % (35.4-49); HEMOGLOBIN 13.7 GM/dL (11.7-16.9); LYMPH % 27.5 % (8-40); MCHC 33.4 g/dl (32.0-35.9); MONO % 12.4 % (3.8-10.2); PLATELET COUNT 141 10^3/uL (134-434); RBC 5.05 M/mm3 (4.00-5.60); RDW 16.5 % (11.9-15.9); WHITE BLOOD COUNT 3.9 K/mm3 (4.0-10.0)
[2022-04-25 08:14] LABS: ALBUMIN 2.7 g/dl (3.4-5.0); BLOOD UREA NITROGEN 41.6 mg/dL (7-18); CALCIUM 8.7 mg/dL (8.5-10.1); MAGNESIUM 1.8 mg/dL (1.8-2.4)
[2022-04-25 08:16] LABS: CREATININE 1.8 mg/dL (0.55-1.3); PHOSPHOROUS 3.4 mg/dL (2.5-4.9)
[2022-04-25 08:19] LABS: BILIRUBIN,TOTAL 1.1 mg/dL (0.2-1); TOT PROT 5.7 g/dl (6.4-8.2)
[2022-04-25] MEDS: SACUBITRIL/VALSARTAN 24 MG-26 MG TABLET PO SCH ×2 (09:25→21:33)
[2022-04-25] MEDS: APIXABAN 5 MG TABLET PO SCH ×2 (09:25→21:33)
[2022-04-25] MEDS ORDERED: INSULIN (NOVOLOG) ASPART 100 UNITS/ML 10ML VIAL ONE (21:03)
[2022-04-25] MEDS ORDERED: DOCUSATE SODIUM 100 MG CAPSULE (FP) PO ONE (23:56)
[2022-04-26 07:48] LABS: BLOOD UREA NITROGEN 39.2 mg/dL (7-18); CALCIUM 8.4 mg/dL (8.5-10.1); MAGNESIUM 1.7 mg/dL (1.8-2.4)
[2022-04-26 07:50] LABS: CREATININE 1.9 mg/dL (0.55-1.3)
[2022-04-26] MEDS ORDERED: MAGNESIUM 1GM/D5W 100ML - 100 ML IVPB IVPB ONE (09:00)
[2022-04-26] MEDS: APIXABAN 5 MG TABLET PO SCH ×2 (10:33→22:26)
[2022-04-26] MEDS: FUROSEMIDE 40 MG/4 ML INJECTABLE VIAL IVPUSH SCH (10:33)
[2022-04-26] MEDS: SACUBITRIL/VALSARTAN 24 MG-26 MG TABLET PO SCH ×2 (10:33→22:26)
[2022-04-26] MEDS: INSULIN SLIDING SCALE (NOVOLOG) 1 VIAL SQ SCH ×3 (12:14→22:35)
[2022-04-27] MEDS: INSULIN SLIDING SCALE (NOVOLOG) 1 VIAL SQ SCH ×2 (06:15→12:34)
[2022-04-27] MEDS: FUROSEMIDE 40 MG/4 ML INJECTABLE VIAL IVPUSH SCH (10:28)
[2022-04-27] MEDS: APIXABAN 5 MG TABLET PO SCH (10:28)
[2022-04-27] MEDS: SACUBITRIL/VALSARTAN 24 MG-26 MG TABLET PO SCH (10:28)
[2022-04-27 10:33] VITALS: BP 129/80; PULSE 80; RESP 16; TEMP 98.7
[2022-04-28] MEDS ORDERED: FUROSEMIDE 40 MG TABLET (FP) PO SCH (06:00)
== END 2022-04-27 15:50 | disposition home or self-care (01) ==
LOC: JER 15:18 → JERBED 22:51 → J4W 04-24 00:40
PROVIDERS: ADMIT Internal Medicine; ATTEND Internal Medicine
PROC: 3E033GC Introduction of Other Therapeutic Substance into Peripheral Vein, Percutaneous Approach (ICD-10-PCS; principal; 2022-04-23)
PROC: 3E013VG Introduction of Insulin into Subcutaneous Tissue, Percutaneous Approach (ICD-10-PCS; 2022-04-23)
PROC: 3E033GC Introduction of Other Therapeutic Substance into Peripheral Vein, Percutaneous Approach (ICD-10-PCS; 2022-04-23)
DX: I11.0 Hypertensive heart disease with heart failure (principal); I50.43 Acute on chronic combined systolic (congestive) and diastolic (congestive) heart failure; N40.0 Benign prostatic hyperplasia without lower urinary tract symptoms; I48.0 Paroxysmal atrial fibrillation; Z95.5 Presence of coronary angioplasty implant and graft; M19.90 Unspecified osteoarthritis, unspecified site; E11.9 Type 2 diabetes mellitus without complications; R77.8 Other specified abnormalities of plasma proteins; Z86.73 Personal history of transient ischemic attack (TIA), and cerebral infarction without residual deficits; Z88.0 Allergy status to penicillin
CPT/HCPCS: 0241U-QW; 36415; 71046-TC-FY; 76705-TC; 80048; 80053; 81003; 82962; 83735; 83880; 84100; 84484; 85025; 85610; 85730; 87086; 93005; 93010; 96372; 96374; 96375; 96376; 99285-25; G0378

== ENCOUNTER 2022-07-10 13:07 | Inpatient (IN) | payer OTHER ==
[2022-07-10 14:45] LABS: BASO % 1.1 % (0-2.0); EOS % 1.2 % (0-4.5); HEMATOCRIT 41.6 % (35.4-49); HEMOGLOBIN 13.4 GM/dL (11.7-16.9); LYMPH % 21.9 % (8-40); MCH 26.6 pg (25.7-33.7); MCHC 32.3 g/dl (32.0-35.9); MEAN CELL VOLUME 82.5 fl (80-96); MEAN PLT VOLUME 10.7 fl (7.5-11.1); MONO % 10.7 % (3.8-10.2); NEUT % 65.1 % (42.8-82.8); PLATELET COUNT 120 10^3/uL (134-434); RBC 5.05 M/mm3 (4.00-5.60); RDW 20.9 % (11.9-15.9); WHITE BLOOD COUNT 4.1 K/mm3 (4.0-10.0)
[2022-07-10 14:52] LABS: INR 1.41 (0.83-1.09); PROTHROMBIN TIME (PATIENT) 16.3 SEC (9.7-13.0)
[2022-07-10 14:54] LABS: ACTIVATED PTT 33.5 SECONDS (25.2-36.5)
[2022-07-10 15:07] LABS: CALCIUM 8.8 mg/dL (8.5-10.1)
[2022-07-10 15:08] LABS: ALBUMIN 3.1 g/dl (3.4-5.0); ANISOCYTOSIS 1+; BLOOD UREA NITROGEN 32.5 mg/dL (7-18); MACROCYTOSIS 1+
[2022-07-10 15:11] LABS: CREATININE 1.9 mg/dL (0.55-1.3)
[2022-07-10 15:13] LABS: BILIRUBIN,TOTAL 1.4 mg/dL (0.2-1); TOT PROT 6.6 g/dl (6.4-8.2)
[2022-07-10 15:16] LABS: N-TERMINAL BNP 10855.8 pg/ml (5-450)
[2022-07-10] MEDS ORDERED: AZITHROMYCIN IVPB 500 MG in DEXTROSE 5%-WATER - 250 ML IVPB ONE (17:32)
[2022-07-10] MEDS ORDERED: CEFTRIAXONE 1,000 MG in DEXTROSE 5%-WATER - 50 ML IVPB ONE (17:33)
[2022-07-10] MEDS ORDERED: CEFTRIAXONE 1 GM/50 ML BAG ONE (18:21)
[2022-07-10] MEDS ORDERED: FUROSEMIDE 40 MG/4 ML INJECTABLE VIAL IVPUSH ONE (19:03)
[2022-07-10] MEDS ORDERED: AZITHROMYCIN IVPB 500 MG/250 ML BAG IVPB ONE (19:19)
[2022-07-10] MEDS ORDERED: DEXTROSE 50%-WATER 25 GM/50 ML DISP.SYRIN IVPUSH PRN (19:28)
[2022-07-10] MEDS ORDERED: FUROSEMIDE 40 MG/4 ML INJECTABLE VIAL ONE (19:47)
[2022-07-10] MEDS: CARVEDILOL 12.5 MG TABLET (FP) PO SCH (22:34)
[2022-07-10] MEDS: ATORVASTATIN CA 40 MG TABLET (FP) PO SCH (22:34)
[2022-07-10] MEDS: APIXABAN 5 MG TABLET PO SCH (22:34)
[2022-07-10] MEDS: INSULIN SLIDING SCALE (NOVOLOG) 1 VIAL SQ SCH (22:36)
[2022-07-10] MEDS: SACUBITRIL/VALSARTAN 49 MG-51 MG TABLET PO SCH (22:48)
[2022-07-11 00:19] VITALS: BMI 30.2
[2022-07-11] MEDS: INSULIN SLIDING SCALE (NOVOLOG) 1 VIAL SQ SCH ×4 (08:12→21:35)
[2022-07-11] MEDS: APIXABAN 5 MG TABLET PO SCH ×2 (09:14→21:35)
[2022-07-11] MEDS: CARVEDILOL 12.5 MG TABLET (FP) PO SCH ×2 (09:15→21:35)
[2022-07-11] MEDS: SACUBITRIL/VALSARTAN 49 MG-51 MG TABLET PO SCH ×2 (09:15→21:35)
[2022-07-11] MEDS: FUROSEMIDE 40 MG/4 ML INJECTABLE VIAL IVPUSH SCH ×2 (10:27→15:29)
[2022-07-11 10:36] LABS: HEMATOCRIT 37.6 % (35.4-49); HEMOGLOBIN 12.5 GM/dL (11.7-16.9); LYMPH % 22.1 % (8-40); MCH 27.1 pg (25.7-33.7); MCHC 33.3 g/dl (32.0-35.9); MEAN CELL VOLUME 81.2 fl (80-96); MEAN PLT VOLUME 10.7 fl (7.5-11.1); MONO % 13.3 % (3.8-10.2); NEUT % 61.6 % (42.8-82.8); PLATELET COUNT 99 10^3/uL (134-434); RBC 4.63 M/mm3 (4.00-5.60); RDW 20.3 % (11.9-15.9); WHITE BLOOD COUNT 3.9 K/mm3 (4.0-10.0)
[2022-07-11 11:01] LABS: ALBUMIN 2.8 g/dl (3.4-5.0); BLOOD UREA NITROGEN 34.7 mg/dL (7-18)
[2022-07-11 11:04] LABS: CREATININE 1.7 mg/dL (0.55-1.3)
[2022-07-11 11:06] LABS: BILIRUBIN,TOTAL 1.2 mg/dL (0.2-1)
[2022-07-11 11:08] LABS: CALCIUM 8.6 mg/dL (8.5-10.1)
[2022-07-11 13:42] LABS: EPI CELLS 4 /uL (0-25.1); HYALINE CASTS 1 /uL (0-3.1); URINE APPEARANCE CLEAR; URINE BACTERIA 3 /uL (0-1359); URINE BILIRUBIN NEGATIVE (NEGATIVE); URINE COLOR YELLOW; URINE GLUCOSE (UA) NEGATIVE (NEGATIVE); URINE KETONE NEGATIVE (NEGATIVE); URINE LEUK ESTERASE 2+ (NEGATIVE); URINE NITRITE NEGATIVE (NEGATIVE); URINE PROTEIN NEGATIVE (NEGATIVE); URINE RBC 7 /uL (0-23.9); URINE UROBILINOGEN 0.2 mg/dL (0.2-1.0); URINE WBC 98 /uL (0-25.8)
[2022-07-11] MEDS: ATORVASTATIN CA 40 MG TABLET (FP) PO SCH (21:35)
[2022-07-12] MEDS: FUROSEMIDE 40 MG/4 ML INJECTABLE VIAL IVPUSH SCH ×2 (05:49→13:06)
[2022-07-12] MEDS: INSULIN SLIDING SCALE (NOVOLOG) 1 VIAL SQ SCH ×4 (06:08→22:19)
[2022-07-12] MEDS: APIXABAN 5 MG TABLET PO SCH ×2 (09:02→22:15)
[2022-07-12] MEDS: SACUBITRIL/VALSARTAN 49 MG-51 MG TABLET PO SCH ×2 (09:02→22:15)
[2022-07-12] MEDS: CARVEDILOL 12.5 MG TABLET (FP) PO SCH ×2 (09:02→22:15)
[2022-07-12 10:08] LABS: EOS % 2.7 % (0-4.5); HEMATOCRIT 36.3 % (35.4-49); LYMPH % 21.1 % (8-40); MCH 26.9 pg (25.7-33.7); MCHC 32.9 g/dl (32.0-35.9); MEAN CELL VOLUME 81.8 fl (80-96); MEAN PLT VOLUME 10.2 fl (7.5-11.1); NEUT % 61.2 % (42.8-82.8); PLATELET COUNT 93 10^3/uL (134-434); RBC 4.44 M/mm3 (4.00-5.60); RDW 20.3 % (11.9-15.9); WHITE BLOOD COUNT 3.6 K/mm3 (4.0-10.0)
[2022-07-12 10:32] LABS: ALBUMIN 2.8 g/dl (3.4-5.0); CALCIUM 8.4 mg/dL (8.5-10.1); MAGNESIUM 1.8 mg/dL (1.8-2.4)
[2022-07-12 10:33] LABS: BLOOD UREA NITROGEN 33.8 mg/dL (7-18)
[2022-07-12 10:35] LABS: CREATININE 1.9 mg/dL (0.55-1.3); PHOSPHOROUS 3.2 mg/dL (2.5-4.9)
[2022-07-12 10:37] LABS: BILIRUBIN,TOTAL 1.2 mg/dL (0.2-1); TOT PROT 5.6 g/dl (6.4-8.2)
[2022-07-12] MEDS ORDERED: INSULIN (NOVOLOG) ASPART 100 UNITS/ML 10ML VIAL ONE ×2 (11:07→18:50)
[2022-07-12] MEDS: ATORVASTATIN CA 40 MG TABLET (FP) PO SCH (22:15)
[2022-07-13] MEDS: INSULIN SLIDING SCALE (NOVOLOG) 1 VIAL SQ SCH ×4 (06:36→21:22)
[2022-07-13] MEDS: FUROSEMIDE 40 MG/4 ML INJECTABLE VIAL IVPUSH SCH ×2 (06:45→13:15)
[2022-07-13] MEDS: CARVEDILOL 12.5 MG TABLET (FP) PO SCH ×2 (09:02→21:21)
[2022-07-13] MEDS: SACUBITRIL/VALSARTAN 49 MG-51 MG TABLET PO SCH ×2 (09:02→21:21)
[2022-07-13] MEDS: APIXABAN 5 MG TABLET PO SCH ×2 (09:02→21:21)
[2022-07-13 11:43] LABS: ALBUMIN 2.8 g/dl (3.4-5.0); CALCIUM 8.6 mg/dL (8.5-10.1)
[2022-07-13 11:44] LABS: BLOOD UREA NITROGEN 31.6 mg/dL (7-18)
[2022-07-13 11:47] LABS: CREATININE 1.6 mg/dL (0.55-1.3)
[2022-07-13 11:49] LABS: BILIRUBIN,TOTAL 1.1 mg/dL (0.2-1); TOT PROT 5.8 g/dl (6.4-8.2)
[2022-07-13] MEDS ORDERED: SENNOSIDES 8.6MG TABLET (FP) PO PRN (15:49)
[2022-07-13] MEDS ORDERED: INSULIN (NOVOLOG) ASPART 100 UNITS/ML 10ML VIAL ONE (21:17)
[2022-07-13] MEDS: ATORVASTATIN CA 40 MG TABLET (FP) PO SCH (21:21)
[2022-07-14] MEDS: FUROSEMIDE 40 MG/4 ML INJECTABLE VIAL IVPUSH SCH ×3 (06:10→14:26)
[2022-07-14] MEDS: INSULIN SLIDING SCALE (NOVOLOG) 1 VIAL SQ SCH ×4 (06:10→21:59)
[2022-07-14 09:57] LABS: HEMATOCRIT 38.3 % (35.4-49); HEMOGLOBIN 12.3 GM/dL (11.7-16.9); MCH 26.4 pg (25.7-33.7); MCHC 32.2 g/dl (32.0-35.9); MEAN CELL VOLUME 82.1 fl (80-96); MEAN PLT VOLUME 10.6 fl (7.5-11.1); PLATELET COUNT 100 10^3/uL (134-434); RBC 4.66 M/mm3 (4.00-5.60); RDW 20.1 % (11.9-15.9)
[2022-07-14 10:14] LABS: ALBUMIN 2.7 g/dl (3.4-5.0); BLOOD UREA NITROGEN 28.7 mg/dL (7-18); CALCIUM 8.4 mg/dL (8.5-10.1); MAGNESIUM 1.7 mg/dL (1.8-2.4)
[2022-07-14 10:17] LABS: CREATININE 1.5 mg/dL (0.55-1.3); PHOSPHOROUS 2.9 mg/dL (2.5-4.9)
[2022-07-14 10:19] LABS: BILIRUBIN,TOTAL 1.1 mg/dL (0.2-1); TOT PROT 5.7 g/dl (6.4-8.2)
[2022-07-14] MEDS: APIXABAN 5 MG TABLET PO SCH ×2 (10:42→21:59)
[2022-07-14] MEDS: CARVEDILOL 12.5 MG TABLET (FP) PO SCH ×2 (10:42→21:59)
[2022-07-14] MEDS: SACUBITRIL/VALSARTAN 49 MG-51 MG TABLET PO SCH ×2 (10:42→21:59)
[2022-07-14] MEDS ORDERED: MAGNESIUM 1GM/D5W - 1 GM/100 ML IVPB IVPB ONE (11:30)
[2022-07-14] MEDS: ATORVASTATIN CA 40 MG TABLET (FP) PO SCH (21:59)
[2022-07-15] MEDS: INSULIN SLIDING SCALE (NOVOLOG) 1 VIAL SQ SCH ×4 (06:31→22:24)
[2022-07-15] MEDS: FUROSEMIDE 40 MG/4 ML INJECTABLE VIAL IVPUSH SCH ×2 (06:33→13:44)
[2022-07-15] MEDS: CARVEDILOL 12.5 MG TABLET (FP) PO SCH ×2 (09:12→22:17)
[2022-07-15] MEDS: APIXABAN 5 MG TABLET PO SCH ×2 (09:12→22:17)
[2022-07-15] MEDS: SACUBITRIL/VALSARTAN 49 MG-51 MG TABLET PO SCH ×2 (09:12→22:17)
[2022-07-15 10:31] LABS: HEMATOCRIT 39.4 % (35.4-49); HEMOGLOBIN 12.8 GM/dL (11.7-16.9); MCH 26.6 pg (25.7-33.7); MCHC 32.4 g/dl (32.0-35.9); MEAN CELL VOLUME 81.9 fl (80-96); MEAN PLT VOLUME 10.8 fl (7.5-11.1); PLATELET COUNT 93 10^3/uL (134-434); RBC 4.81 M/mm3 (4.00-5.60); RDW 20.2 % (11.9-15.9); WHITE BLOOD COUNT 3.7 K/mm3 (4.0-10.0)
[2022-07-15 10:53] LABS: CALCIUM 8.8 mg/dL (8.5-10.1)
[2022-07-15 10:54] LABS: ALBUMIN 2.9 g/dl (3.4-5.0); BLOOD UREA NITROGEN 24.9 mg/dL (7-18); MAGNESIUM 1.8 mg/dL (1.8-2.4)
[2022-07-15 10:57] LABS: CREATININE 1.4 mg/dL (0.55-1.3); PHOSPHOROUS 2.5 mg/dL (2.5-4.9)
[2022-07-15 10:58] LABS: BILIRUBIN,TOTAL 1.3 mg/dL (0.2-1); TOT PROT 6.1 g/dl (6.4-8.2)
[2022-07-15] MEDS: ATORVASTATIN CA 40 MG TABLET (FP) PO SCH (22:17)
[2022-07-16] MEDS: FUROSEMIDE 40 MG/4 ML INJECTABLE VIAL IVPUSH SCH ×2 (05:31→15:05)
[2022-07-16] MEDS: INSULIN SLIDING SCALE (NOVOLOG) 1 VIAL SQ SCH ×2 (06:48→11:37)
[2022-07-16] MEDS: CARVEDILOL 12.5 MG TABLET (FP) PO SCH (10:09)
[2022-07-16] MEDS: APIXABAN 5 MG TABLET PO SCH (10:09)
[2022-07-16] MEDS: SACUBITRIL/VALSARTAN 49 MG-51 MG TABLET PO SCH (10:09)
[2022-07-16 10:22] LABS: CALCIUM 8.9 mg/dL (8.5-10.1)
[2022-07-16 10:23] LABS: BLOOD UREA NITROGEN 21.8 mg/dL (7-18); MAGNESIUM 1.6 mg/dL (1.8-2.4)
[2022-07-16 10:26] LABS: CREATININE 1.4 mg/dL (0.55-1.3); PHOSPHOROUS 2.7 mg/dL (2.5-4.9)
[2022-07-16 14:36] VITALS: RESP 18
[2022-07-16 14:53] VITALS: BP 113/61; PULSE 67; TEMP 98
== END 2022-07-16 17:03 | disposition home or self-care (01) | DRG 291 ==
LOC: JER 13:07 → JERBED 17:57 → J6S 21:30
PROVIDERS: ADMIT Internal Medicine; ATTEND Internal Medicine
DX: I13.0 Hypertensive heart and chronic kidney disease with heart failure and stage 1 through stage 4 chronic kidney disease, or unspecified chronic kidney disease (principal); I50.23 Acute on chronic systolic (congestive) heart failure; N17.9 Acute kidney failure, unspecified; E11.22 Type 2 diabetes mellitus with diabetic chronic kidney disease; N18.9 Chronic kidney disease, unspecified; E78.5 Hyperlipidemia, unspecified; I48.0 Paroxysmal atrial fibrillation; N40.0 Benign prostatic hyperplasia without lower urinary tract symptoms; E11.65 Type 2 diabetes mellitus with hyperglycemia; I25.10 Atherosclerotic heart disease of native coronary artery without angina pectoris; Z95.5 Presence of coronary angioplasty implant and graft; Z86.73 Personal history of transient ischemic attack (TIA), and cerebral infarction without residual deficits; Z91.14 Patient's other noncompliance with medication regimen
CPT/HCPCS: 0241U-QW; 36415; 70450-TC; 71046-TC-FY; 80048; 80053; 81003; 82962; 83735; 83880; 84100; 84484; 85025; 85027; 85610; 85730; 93005; 93010; 97116-GP; 97162-GP; 99285-25

== ENCOUNTER 2023-06-20 17:08 | Observation (INO) | payer OTHER ==
[2023-06-20] MEDS ORDERED: ASPIRIN 81 MG CHEWABLE TABLETS PO ONE (17:56)
[2023-06-20] MEDS ORDERED: ASPIRIN 81 MG CHEWABLE TABLETS ONE (18:04)
[2023-06-20 18:22] LABS: EOS % 3.6 % (0-4.5); HEMATOCRIT 45.7 % (35.4-49); HEMOGLOBIN 15.2 GM/dL (11.7-16.9); LYMPH % 27.4 % (8-40); MCH 28.7 pg (25.7-33.7); MCHC 33.3 g/dl (32.0-35.9); MEAN PLT VOLUME 10.2 fl (7.5-11.1); MONO % 9.5 % (3.8-10.2); NEUT % 57.5 % (42.8-82.8); PLATELET COUNT 147 10^3/uL (134-434); RBC 5.31 M/mm3 (4.00-5.60); RDW 14.8 % (11.9-15.9); WHITE BLOOD COUNT 4.7 K/mm3 (4.0-10.0)
[2023-06-20 18:29] LABS: INR 1.36 (0.83-1.09); PROTHROMBIN TIME (PATIENT) 15.7 SEC (9.7-13.0)
[2023-06-20 18:31] LABS: ACTIVATED PTT 36.3 SECONDS (25.2-36.5)
[2023-06-20 20:15] LABS: ALBUMIN 3.3 g/dl (3.4-5.0); BLOOD UREA NITROGEN 31.2 mg/dL (7-18); MAGNESIUM 1.7 mg/dL (1.8-2.4)
[2023-06-20 20:20] LABS: BILIRUBIN,TOTAL 0.6 mg/dL (0.2-1); TOT PROT 7.3 g/dl (6.4-8.2)
[2023-06-20] MEDS ORDERED: MAGNESIUM SULFATE IN WATER 2 GM/50 ML IVPB IVPB ONE ×2 (20:23→20:29)
[2023-06-20 21:18] LABS: PHOSPHOROUS 3.6 mg/dL (2.5-4.9)
[2023-06-20] MEDS ORDERED: APIXABAN 5 MG TABLET PO SCH (23:15)
[2023-06-21 01:55] LABS: PH,URINE 5.5 (5.0-8.0); URINE APPEARANCE CLEAR; URINE BILIRUBIN NEGATIVE (NEGATIVE); URINE COLOR YELLOW; URINE GLUCOSE (UA) 3+ (NEGATIVE); URINE KETONE NEGATIVE (NEGATIVE); URINE LEUK ESTERASE NEGATIVE (NEGATIVE); URINE NITRITE NEGATIVE (NEGATIVE); URINE PROTEIN NEGATIVE (NEGATIVE)
[2023-06-21 07:53] LABS: BASO % 1.4 % (0-2.0); EOS % 4.6 % (0-4.5); HEMATOCRIT 44.2 % (35.4-49); HEMOGLOBIN 14.6 GM/dL (11.7-16.9); MCH 28.6 pg (25.7-33.7); MEAN CELL VOLUME 86.5 fl (80-96); MEAN PLT VOLUME 10.1 fl (7.5-11.1); MONO % 10.6 % (3.8-10.2); NEUT % 53.4 % (42.8-82.8); PLATELET COUNT 118 10^3/uL (134-434); RBC 5.11 M/mm3 (4.00-5.60); RDW 14.5 % (11.9-15.9)
[2023-06-21] MEDS: INSULIN ASPART SLIDING SCALE (NOVOLOG) 1 VIAL SQ SCH ×4 (08:08→22:23)
[2023-06-21 08:10] LABS: POTASSIUM 3.7 mmol/L (3.5-5.1)
[2023-06-21 08:16] LABS: ALBUMIN 2.9 g/dl (3.4-5.0); BLOOD UREA NITROGEN 29.8 mg/dL (7-18); MAGNESIUM 2.2 mg/dL (1.8-2.4)
[2023-06-21 08:19] LABS: CREATININE 1.6 mg/dL (0.55-1.3); PHOSPHOROUS 3.8 mg/dL (2.5-4.9)
[2023-06-21 08:20] LABS: BILIRUBIN,TOTAL 0.5 mg/dL (0.2-1); TOT PROT 6.6 g/dl (6.4-8.2)
[2023-06-21] MEDS ORDERED: APIXABAN 5 MG TABLET ONE (08:56)
[2023-06-21] MEDS ORDERED: METOPROLOL TARTRATE 50 MG TABLET (FP) ONE ×2 (08:56→21:54)
[2023-06-21] MEDS ORDERED: TAMSULOSIN HCL 0.4 MG CAP ONE (08:56)
[2023-06-21] MEDS: TAMSULOSIN HCL 0.4 MG CAP PO SCH (08:58)
[2023-06-21] MEDS: APIXABAN 5 MG TABLET PO SCH ×2 (09:18→22:23)
[2023-06-21] MEDS ORDERED: SOLIFENACIN SUCCINATE PO SCH (10:00)
[2023-06-21] MEDS: METOPROLOL TARTRATE 25 MG TABLET (FP) PO SCH ×2 (10:43→22:23)
[2023-06-21] MEDS ORDERED: ATORVASTATIN CA 40 MG TABLET (FP) ONE (21:54)
[2023-06-21] MEDS ORDERED: SACUBITRIL/VALSARTAN 49 MG-51 MG TABLET ONE (21:55)
[2023-06-21] MEDS: ATORVASTATIN CA 40 MG TABLET (FP) PO SCH (22:23)
[2023-06-21] MEDS: SACUBITRIL/VALSARTAN 49 MG-51 MG TABLET PO SCH (22:23)
[2023-06-22 04:29] VITALS: BMI 23.6
[2023-06-22] MEDS: INSULIN ASPART SLIDING SCALE (NOVOLOG) 1 VIAL SQ SCH ×5 (06:36→22:00)
[2023-06-22 06:59] LABS: BASO % 1.4 % (0-2.0); EOS % 4.1 % (0-4.5); HEMATOCRIT 44.1 % (35.4-49); HEMOGLOBIN 14.4 GM/dL (11.7-16.9); MCH 28.2 pg (25.7-33.7); MCHC 32.6 g/dl (32.0-35.9); MEAN CELL VOLUME 86.4 fl (80-96); MONO % 11.5 % (3.8-10.2); PLATELET COUNT 105 10^3/uL (134-434); RDW 15.1 % (11.9-15.9); WHITE BLOOD COUNT 4.2 K/mm3 (4.0-10.0)
[2023-06-22 07:15] LABS: POTASSIUM 3.8 mmol/L (3.5-5.1)
[2023-06-22 07:21] LABS: ALBUMIN 2.7 g/dl (3.4-5.0); BLOOD UREA NITROGEN 29.2 mg/dL (7-18); CALCIUM 8.3 mg/dL (8.5-10.1); MAGNESIUM 2.3 mg/dL (1.8-2.4)
[2023-06-22 07:23] LABS: PHOSPHOROUS 3.9 mg/dL (2.5-4.9)
[2023-06-22 07:24] LABS: CREATININE 1.5 mg/dL (0.55-1.3)
[2023-06-22 07:25] LABS: BILIRUBIN,TOTAL 0.6 mg/dL (0.2-1); TOT PROT 6.2 g/dl (6.4-8.2)
[2023-06-22] MEDS: SACUBITRIL/VALSARTAN 97 MG-103 MG TABLET PO SCH (08:36)
[2023-06-22] MEDS: TAMSULOSIN HCL 0.4 MG CAP PO SCH (08:37)
[2023-06-22] MEDS: METOPROLOL TARTRATE 25 MG TABLET (FP) PO SCH ×3 (09:44→21:22)
[2023-06-22] MEDS: APIXABAN 5 MG TABLET PO SCH ×2 (09:44→21:22)
[2023-06-22] MEDS ORDERED: TORSEMIDE 20 MG TABLET (FP) PO SCH (10:00)
[2023-06-22] MEDS ORDERED: SOLIFENACIN SUCCINATE 5 MG TAB PO SCH (10:00)
[2023-06-22] MEDS ORDERED: POLYETHYLENE GLYCOL (HEALTHYLAX) 3350 17 GM PACKET PO SCH (11:15)
[2023-06-22] MEDS: ATORVASTATIN CA 40 MG TABLET (FP) PO SCH (21:22)
[2023-06-22] MEDS: SACUBITRIL/VALSARTAN 49 MG-51 MG TABLET PO SCH (21:22)
[2023-06-23] MEDS: INSULIN ASPART SLIDING SCALE (NOVOLOG) 1 VIAL SQ SCH (05:59)
[2023-06-23] MEDS: SACUBITRIL/VALSARTAN 97 MG-103 MG TABLET PO SCH (06:00)
[2023-06-23 09:44] VITALS: BP 111/58; PULSE 71; RESP 16; TEMP 97.8
== END 2023-06-23 10:06 | disposition home or self-care (01) ==
LOC: JER 17:08 → JERBED 20:00 → J4W 06-22 01:33
PROVIDERS: ADMIT Internal Medicine; ATTEND Internal Medicine
PROC: 3E033GC Introduction of Other Therapeutic Substance into Peripheral Vein, Percutaneous Approach (ICD-10-PCS; principal; 2023-06-20)
DX: R00.2 Palpitations (principal); E11.22 Type 2 diabetes mellitus with diabetic chronic kidney disease; I13.0 Hypertensive heart and chronic kidney disease with heart failure and stage 1 through stage 4 chronic kidney disease, or unspecified chronic kidney disease; N18.30 Chronic kidney disease, stage 3 unspecified; N17.9 Acute kidney failure, unspecified; I50.33 Acute on chronic diastolic (congestive) heart failure; Z79.85 Long-term (current) use of injectable non-insulin antidiabetic drugs; N40.0 Benign prostatic hyperplasia without lower urinary tract symptoms; I48.0 Paroxysmal atrial fibrillation; Z86.73 Personal history of transient ischemic attack (TIA), and cerebral infarction without residual deficits; Z95.5 Presence of coronary angioplasty implant and graft; Z88.0 Allergy status to penicillin; Z79.01 Long term (current) use of anticoagulants; E83.42 Hypomagnesemia; I25.5 Ischemic cardiomyopathy
CPT/HCPCS: 0241U-QW; 36415; 71045-TC-FY; 80053; 81003; 82550; 82962; 83036; 83735; 83880; 84100; 84484; 85025; 85610; 85730; 87086; 93005; 93010; 93306-TC; 96365; 99285-25; G0378

== ENCOUNTER 2024-03-15 04:39 | Inpatient (IN) | payer OTHER ==
[2024-03-15 04:46] VITALS: BMI 26.0
[2024-03-15 06:37] LABS: POTASSIUM 4.7 mmol/L (3.5-5.1)
[2024-03-15 06:38] LABS: CALCIUM 9.4 mg/dL (8.5-10.1)
[2024-03-15 06:39] LABS: ALBUMIN 3.4 g/dl (3.4-5.0); BASO % 1.1 % (0-2.0); EOS % 0.4 % (0-4.5); HEMATOCRIT 44.2 % (35.4-49); HEMOGLOBIN 14.3 GM/dL (11.7-16.9); LYMPH % 13.8 % (8-40); MCH 29.4 pg (25.7-33.7); MCHC 32.2 g/dl (32.0-35.9); MEAN CELL VOLUME 91.3 fl (80-96); MEAN PLT VOLUME 10.7 fl (7.5-11.1); MONO % 12.5 % (3.8-10.2); NEUT % 72.2 % (42.8-82.8); PLATELET COUNT 126 10^3/uL (134-434); RBC 4.85 M/mm3 (4.00-5.60); RDW 16.5 % (11.9-15.9)
[2024-03-15 06:42] LABS: CREATININE 3.1 mg/dL (0.55-1.3)
[2024-03-15 06:44] LABS: BILIRUBIN,TOTAL 0.8 mg/dL (0.2-1); TOT PROT 6.6 g/dl (6.4-8.2)
[2024-03-15] MEDS: FUROSEMIDE 40 MG/4 ML INJECTABLE VIAL IVPUSH ONE ×2 (06:46→13:08)
[2024-03-15 06:54] LABS: VENOUS BASE EXCESS -3.6 mmol/L (-2-2); VENOUS O2 SATURATION 60.2 % (70-80); VENOUS PCO2 37.3 mmHg (38-52); VENOUS PH 7.37 (7.310-7.410)
[2024-03-15 07:37] LABS: N-TERMINAL BNP 50623.5 pg/ml (5-450)
[2024-03-15 09:18] LABS: URINE APPEARANCE CLEAR; URINE BILIRUBIN NEGATIVE (NEGATIVE); URINE COLOR YELLOW; URINE GLUCOSE (UA) 3+ (NEGATIVE); URINE KETONE TRACE (NEGATIVE); URINE LEUK ESTERASE NEGATIVE (NEGATIVE); URINE NITRITE NEGATIVE (NEGATIVE); URINE PROTEIN NEGATIVE (NEGATIVE)
[2024-03-15] MEDS: HEPARIN NA (PORCINE) 5,000 UNITS/ML 1ML VIAL SQ SCH (10:33)
[2024-03-15] MEDS: ATORVASTATIN CA 40 MG TABLET (FP) PO SCH (10:33)
[2024-03-15] MEDS ORDERED: ROSUVASTATIN CA 20 MG TABLET ONE (10:34)
[2024-03-15] MEDS ORDERED: APIXABAN 2.5 MG TABLET ONE (10:34)
[2024-03-15] MEDS ORDERED: metoPROLOL SUCCINATE 25 MG TAB.SR.24H (FP) PO ONE (10:34)
[2024-03-15] MEDS ORDERED: TAMSULOSIN HCL 0.4 MG CAP ONE (10:34)
[2024-03-15] MEDS: TAMSULOSIN HCL 0.4 MG CAP PO SCH (12:04)
[2024-03-15] MEDS: APIXABAN 2.5 MG TABLET PO SCH (12:04)
[2024-03-15] MEDS: ROSUVASTATIN CA 10 MG TABLET PO SCH (12:24)
[2024-03-15] MEDS ORDERED: FUROSEMIDE 40 MG/4 ML INJECTABLE VIAL ONE (13:05)
[2024-03-16] MEDS: guaiFENesin 200 MG/10 ML 10 ML UNIT-DOSE CUPS PO ONE (01:35)
[2024-03-16 08:33] LABS: BASO % 0.8 % (0-2.0); EOS % 0.7 % (0-4.5); HEMATOCRIT 42.4 % (35.4-49); HEMOGLOBIN 14.3 GM/dL (11.7-16.9); LYMPH % 28.2 % (8-40); MCH 30.1 pg (25.7-33.7); MCHC 33.7 g/dl (32.0-35.9); MEAN CELL VOLUME 89.4 fl (80-96); MEAN PLT VOLUME 10.7 fl (7.5-11.1); MONO % 12.2 % (3.8-10.2); NEUT % 58.1 % (42.8-82.8); PLATELET COUNT 125 10^3/uL (134-434); RBC 4.74 M/mm3 (4.00-5.60); WHITE BLOOD COUNT 6.1 K/mm3 (4.0-10.0)
[2024-03-16 08:47] LABS: POTASSIUM 4.2 mmol/L (3.5-5.1)
[2024-03-16 08:55] LABS: ALBUMIN 3.2 g/dl (3.4-5.0)
[2024-03-16 08:56] LABS: BLOOD UREA NITROGEN 64.9 mg/dL (7-18); MAGNESIUM 2.4 mg/dL (1.8-2.4)
[2024-03-16 08:58] LABS: CREATININE 3.1 mg/dL (0.55-1.3)
[2024-03-16 08:59] LABS: BILIRUBIN,TOTAL 0.8 mg/dL (0.2-1)
[2024-03-16 09:00] LABS: TOT PROT 6.6 g/dl (6.4-8.2)
[2024-03-16] MEDS: ROSUVASTATIN CA 5 MG TABLET PO SCH (09:41)
[2024-03-16] MEDS: FUROSEMIDE 40 MG/4 ML INJECTABLE VIAL IVPUSH ONE ×2 (10:16→11:52)
[2024-03-16] MEDS: INSULIN ASPART SLIDING SCALE (NOVOLOG) 1 VIAL SQ SCH (17:07)
[2024-03-17 08:58] LABS: BASO % 0.4 % (0-2.0); EOS % 1.7 % (0-4.5); HEMATOCRIT 42.1 % (35.4-49); HEMOGLOBIN 13.5 GM/dL (11.7-16.9); LYMPH % 21.9 % (8-40); MCH 29.2 pg (25.7-33.7); MCHC 32.1 g/dl (32.0-35.9); MEAN CELL VOLUME 90.8 fl (80-96); MEAN PLT VOLUME 10.8 fl (7.5-11.1); MONO % 11.8 % (3.8-10.2); NEUT % 64.2 % (42.8-82.8); PLATELET COUNT 121 10^3/uL (134-434); RBC 4.64 M/mm3 (4.00-5.60); RDW 16.2 % (11.9-15.9); WHITE BLOOD COUNT 4.4 K/mm3 (4.0-10.0)
[2024-03-17 09:12] LABS: POTASSIUM 4.1 mmol/L (3.5-5.1)
[2024-03-17 09:16] LABS: CALCIUM 8.8 mg/dL (8.5-10.1)
[2024-03-17 09:17] LABS: BLOOD UREA NITROGEN 61.1 mg/dL (7-18); MAGNESIUM 2.4 mg/dL (1.8-2.4)
[2024-03-17 09:20] LABS: CREATININE 2.6 mg/dL (0.55-1.3); PHOSPHOROUS 3.7 mg/dL (2.5-4.9)
[2024-03-17 09:21] LABS: BILIRUBIN,TOTAL 0.6 mg/dL (0.2-1); TOT PROT 6.3 g/dl (6.4-8.2)
[2024-03-17] MEDS: FUROSEMIDE 40 MG/4 ML INJECTABLE VIAL IVPUSH ONE (12:18)
[2024-03-17] MEDS: metoPROLOL SUCCINATE 25 MG TAB.SR.24H (FP) PO ONE (17:01)
[2024-03-18 10:39] LABS: POTASSIUM 3.9 mmol/L (3.5-5.1)
[2024-03-18 10:43] LABS: BLOOD UREA NITROGEN 63.7 mg/dL (7-18)
[2024-03-18 10:45] LABS: CALCIUM 8.9 mg/dL (8.5-10.1)
[2024-03-18 10:47] LABS: CREATININE 2.5 mg/dL (0.55-1.3); MAGNESIUM 2.3 mg/dL (1.8-2.4); PHOSPHOROUS 3.7 mg/dL (2.5-4.9)
[2024-03-18] MEDS: FUROSEMIDE 40 MG/4 ML INJECTABLE VIAL IVPUSH ONE (12:25)
[2024-03-18] MEDS: APIXABAN 2.5 MG TABLET PO SCH (21:22)
[2024-03-18] MEDS: ACETAMINOPHEN 325 MG TABLET (FP) PO PRN (21:23)
[2024-03-19] MEDS: TAMSULOSIN HCL 0.4 MG CAP PO SCH (07:57)
[2024-03-19 08:25] LABS: EOS % 2.9 % (0-4.5); HEMATOCRIT 41.4 % (35.4-49); HEMOGLOBIN 13.8 GM/dL (11.7-16.9); LYMPH % 22.4 % (8-40); MCH 29.9 pg (25.7-33.7); MCHC 33.3 g/dl (32.0-35.9); MEAN CELL VOLUME 89.8 fl (80-96); MONO % 12.9 % (3.8-10.2); NEUT % 60.8 % (42.8-82.8); PLATELET COUNT 114 10^3/uL (134-434); RBC 4.62 M/mm3 (4.00-5.60); RDW 16.1 % (11.9-15.9); WHITE BLOOD COUNT 3.7 K/mm3 (4.0-10.0)
[2024-03-19 08:48] LABS: POTASSIUM 4.1 mmol/L (3.5-5.1)
[2024-03-19 08:50] LABS: CALCIUM 9.2 mg/dL (8.5-10.1)
[2024-03-19 08:51] LABS: ALBUMIN 2.9 g/dl (3.4-5.0); BLOOD UREA NITROGEN 67.1 mg/dL (7-18)
[2024-03-19 08:56] LABS: BILIRUBIN,TOTAL 0.6 mg/dL (0.2-1); CREATININE 2.3 mg/dL (0.55-1.3); TOT PROT 5.9 g/dl (6.4-8.2)
[2024-03-19] MEDS: ROSUVASTATIN CA 5 MG TABLET PO SCH (09:54)
[2024-03-20] MEDS: TORSEMIDE 20 MG TABLET (FP) PO SCH (10:10)
[2024-03-20 14:01] LABS: BASO % 0.6 % (0-2.0); HEMOGLOBIN 13.9 GM/dL (11.7-16.9); MCH 28.9 pg (25.7-33.7); MCHC 31.6 g/dl (32.0-35.9); MEAN CELL VOLUME 91.6 fl (80-96); MEAN PLT VOLUME 10.8 fl (7.5-11.1); MONO % 10.7 % (3.8-10.2); NEUT % 66.7 % (42.8-82.8); PLATELET COUNT 129 10^3/uL (134-434); RBC 4.81 M/mm3 (4.00-5.60); WHITE BLOOD COUNT 4.2 K/mm3 (4.0-10.0)
[2024-03-20 14:58] LABS: POTASSIUM 4.2 mmol/L (3.5-5.1)
[2024-03-20 15:06] VITALS: BP 93/92; PULSE 93; RESP 19; TEMP 97.5
[2024-03-20 16:01] LABS: CALCIUM 9.4 mg/dL (8.5-10.1)
[2024-03-20 16:02] LABS: ALBUMIN 3.1 g/dl (3.4-5.0); BLOOD UREA NITROGEN 63.8 mg/dL (7-18)
[2024-03-20 16:05] LABS: CREATININE 2.1 mg/dL (0.55-1.3)
[2024-03-20 16:06] LABS: TOT PROT 6.4 g/dl (6.4-8.2)
[2024-03-20 16:07] LABS: BILIRUBIN,TOTAL 0.7 mg/dL (0.2-1)
== END 2024-03-20 19:07 | disposition home or self-care (01) | DRG 291 ==
LOC: JER 04:39 → JERBED 09:30 → J6W 15:48 → J4W 03-16 12:37
PROVIDERS: ADMIT Internal Medicine; ATTEND Internal Medicine
DX: I13.0 Hypertensive heart and chronic kidney disease with heart failure and stage 1 through stage 4 chronic kidney disease, or unspecified chronic kidney disease (principal); I50.23 Acute on chronic systolic (congestive) heart failure; N17.9 Acute kidney failure, unspecified; I25.10 Atherosclerotic heart disease of native coronary artery without angina pectoris; I48.0 Paroxysmal atrial fibrillation; Z79.01 Long term (current) use of anticoagulants; N40.0 Benign prostatic hyperplasia without lower urinary tract symptoms; E11.22 Type 2 diabetes mellitus with diabetic chronic kidney disease; I25.2 Old myocardial infarction; N18.9 Chronic kidney disease, unspecified; Z79.84 Long term (current) use of oral hypoglycemic drugs; I44.7 Left bundle-branch block, unspecified; I42.8 Other cardiomyopathies
CPT/HCPCS: 0241U-QW; 36415; 71045-TC-FY; 76775-TC; 76856-TC; 80048; 80053; 81003; 82803; 82962; 83036; 83735; 83880; 84100; 84484; 85025; 87633; 93005; 93010; 93306-TC; 99285-25

== ENCOUNTER 2024-05-19 07:19 | Observation (INO) | payer OTHER ==
[2024-05-19 07:45] VITALS: BMI 24.8
[2024-05-19] MEDS ORDERED: ASPIRIN 81 MG CHEWABLE TABLETS ONE (08:07)
[2024-05-19 08:23] LABS: POTASSIUM 3.5 mmol/L (3.5-5.1)
[2024-05-19 08:25] LABS: CALCIUM 9.5 mg/dL (8.5-10.1)
[2024-05-19 08:26] LABS: ALBUMIN 3.2 g/dl (3.4-5.0); BLOOD UREA NITROGEN 45.2 mg/dL (7-18); MAGNESIUM 2.4 mg/dL (1.8-2.4)
[2024-05-19 08:29] LABS: CREATININE 2.9 mg/dL (0.55-1.3)
[2024-05-19 08:30] LABS: BILIRUBIN,TOTAL 0.9 mg/dL (0.2-1); INR 1.9 (0.83-1.09); PROTHROMBIN TIME (PATIENT) 21.1 SEC (9.7-13.0); TOT PROT 6.7 g/dl (6.4-8.2)
[2024-05-19] MEDS: ASPIRIN 81 MG CHEWABLE TABLETS PO ONE (08:32)
[2024-05-19 08:33] LABS: ACTIVATED PTT 35.9 SECONDS (25.2-36.5)
[2024-05-19 08:38] LABS: BASO % 1.3 % (0-2.0); EOS % 1.6 % (0-4.5); HEMATOCRIT 43.5 % (35.4-49); HEMOGLOBIN 14.3 GM/dL (11.7-16.9); MCH 28.3 pg (25.7-33.7); MCHC 32.9 g/dl (32.0-35.9); MEAN CELL VOLUME 85.9 fl (80-96); NEUT % 68.1 % (42.8-82.8); PLATELET COUNT 117 10^3/uL (134-434); RBC 5.07 M/mm3 (4.00-5.60); RDW 15.4 % (11.9-15.9); WHITE BLOOD COUNT 3.7 K/mm3 (4.0-10.0)
[2024-05-19] MEDS ORDERED: FUROSEMIDE 40 MG/4 ML INJECTABLE VIAL ONE (10:14)
[2024-05-19] MEDS: FUROSEMIDE 40 MG/4 ML INJECTABLE VIAL IVPUSH ONE (10:22)
[2024-05-19 11:31] LABS: URINE APPEARANCE CLEAR; URINE BILIRUBIN NEGATIVE (NEGATIVE); URINE COLOR YELLOW; URINE GLUCOSE (UA) 3+ (NEGATIVE); URINE KETONE NEGATIVE (NEGATIVE); URINE LEUK ESTERASE NEGATIVE (NEGATIVE); URINE NITRITE NEGATIVE (NEGATIVE); URINE PROTEIN NEGATIVE (NEGATIVE); URINE UROBILINOGEN 0.2 mg/dL (0.2-1.0)
[2024-05-19] MEDS ORDERED: APIXABAN 5 MG TABLET ONE (11:59)
[2024-05-19] MEDS: APIXABAN 2.5 MG TABLET PO SCH (12:00)
[2024-05-19] MEDS: INSULIN ASPART SLIDING SCALE (NOVOLOG) 1 VIAL SQ SCH (17:02)
[2024-05-19] MEDS: metoPROLOL SUCCINATE 25 MG TAB.SR.24H (FP) PO SCH (21:28)
[2024-05-19] MEDS: ROSUVASTATIN CA 10 MG TABLET PO SCH (21:28)
[2024-05-20 08:25] LABS: HEMATOCRIT 48.4 % (35.4-49); HEMOGLOBIN 15.2 GM/dL (11.7-16.9); MCH 27.5 pg (25.7-33.7); MCHC 31.4 g/dl (32.0-35.9); MEAN CELL VOLUME 87.7 fl (80-96); MEAN PLT VOLUME 10.5 fl (7.5-11.1); PLATELET COUNT 122 10^3/uL (134-434); RBC 5.52 M/mm3 (4.00-5.60); RDW 15.4 % (11.9-15.9); WHITE BLOOD COUNT 3.9 K/mm3 (4.0-10.0)
[2024-05-20 08:29] LABS: INR 1.78 (0.83-1.09); PROTHROMBIN TIME (PATIENT) 20.1 SEC (9.7-13.0)
[2024-05-20 08:44] LABS: POTASSIUM 3.9 mmol/L (3.5-5.1)
[2024-05-20 08:46] LABS: CALCIUM 9.6 mg/dL (8.5-10.1)
[2024-05-20 08:47] LABS: BLOOD UREA NITROGEN 47.6 mg/dL (7-18); MAGNESIUM 2.4 mg/dL (1.8-2.4)
[2024-05-20 08:50] LABS: CREATININE 2.9 mg/dL (0.55-1.3)
[2024-05-20 08:52] LABS: TOT PROT 6.6 g/dl (6.4-8.2)
[2024-05-20] MEDS: TORSEMIDE 20 MG TABLET (FP) PO SCH (10:17)
[2024-05-20 12:18] VITALS: RESP 16
[2024-05-20 17:57] VITALS: BP 137/88; PULSE 64; TEMP 97.8
== END 2024-05-20 15:21 | disposition home or self-care (01) ==
LOC: JER 07:19 → JERBED 09:53 → J4W 14:59
PROVIDERS: ADMIT Student in an Organized Health Care Education/Training Program; ATTEND Internal Medicine
PROC: 3E033GC Introduction of Other Therapeutic Substance into Peripheral Vein, Percutaneous Approach (ICD-10-PCS; principal; 2024-05-19)
PROC: 3E013VG Introduction of Insulin into Subcutaneous Tissue, Percutaneous Approach (ICD-10-PCS; 2024-05-19)
DX: I50.23 Acute on chronic systolic (congestive) heart failure (principal); E11.22 Type 2 diabetes mellitus with diabetic chronic kidney disease; I13.0 Hypertensive heart and chronic kidney disease with heart failure and stage 1 through stage 4 chronic kidney disease, or unspecified chronic kidney disease; N18.9 Chronic kidney disease, unspecified; N17.9 Acute kidney failure, unspecified; I48.0 Paroxysmal atrial fibrillation; N40.0 Benign prostatic hyperplasia without lower urinary tract symptoms; I25.10 Atherosclerotic heart disease of native coronary artery without angina pectoris; E78.5 Hyperlipidemia, unspecified; Z86.73 Personal history of transient ischemic attack (TIA), and cerebral infarction without residual deficits; Z79.01 Long term (current) use of anticoagulants; Z95.5 Presence of coronary angioplasty implant and graft; Z88.0 Allergy status to penicillin
CPT/HCPCS: 0241U-QW; 36415; 71045-TC-FY; 80053; 81003; 82570; 82962; 83735; 83880; 84100; 84300; 84484; 84540; 85025; 85027; 85610; 85730; 87086; 93005; 93010; 96372; 96374; 99285-25; G0378